=== PATIENT | female | born 1995 | race African-American/Black ===

== ENCOUNTER 2016-06-06 12:30 | Emergency (ER) | payer OTHER ==
--- NOTE | 2016-06-06 14:47 | EDDOCDS ---
Nurse's Notes [facility] Name: Lacey Mohan Age: 21 yrs Sex: Female : 1995 Arrival Date: 06/06/2016 Time: 12:30 Bed Triage 1 Private MD: Vani SMALL Diagnosis: Low back pain;Constipation Presentation: 06/06 12:40 Presenting complaint: Patient states: extreme back and abdominal pain that started dsf yesterday. Acute neurological deficits are not present. Mechanism of Injury: No Mechanism of Injury. Adult Sepsis Screening: The patient does not have new or worsening altered mentation. Patient's respiratory rate is less than 22. Systolic blood pressure is greater than 100. Patient has a qSOFA score of 0- Negative Sepsis Screen. Suicide/Homicide risk assessment- the patient denies having any suicidal and/or homicidal ideations and does not present with any other emotional, behavioral or mental health complaints. 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 Transition of care: patient was not received from another setting of care. 12:40 Acuity: DAT Level 4 dsf 12:40 Method Of Arrival: Wheelchair dsf Triage Assessment: 12:41 General: Appears in no apparent distress, Behavior is appropriate for age, cooperative. dsf Pain: Location: back and abdomen Pain currently is 10 out of 10 on a pain scale. HIV screening NA for this visit active duty . Neurological: Level of Consciousness is awake, alert. GI: Reports Pain is 10 out of 10 on a pain scale. Musculoskeletal: Reports pain in back. 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 albuterol sulfate 90 mcg/actuation Inhl HFAA as needed (Last dose: Unknown) 2. Flexeril 10 mg Oral tab 1 tab 3 times per day (Last dose: Unknown) - PMHx: Asthma; - PSHx: none; - Social history: Smoking status: Patient uses tobacco products, current every day smoker. No barriers to communication noted, The patient speaks fluent Wolof, Speaks appropriately for age. - Family history: Not pertinent. - : The pt / caregiver states he / she is not on anticoagulants. Home medication list is obtained from the patient. - Exposure Risk Screening:: None identified. Screenin:45 Screening information is obtained from the patient. Fall risk: No risks identified. kr3 Assistance ADL's: requires no assistance with activities of daily living. Abuse/DV Screen: The patient / caregiver reports he/she is: not in a situation that causes fear, pain or injury. Nutritional screening: No deficits noted. Advance Directives: Currently, there is no health care proxy. home support is adequate. Assessment: 14:45 Reassessment: Patient appears in no apparent distress at this time. Pain: Location: kr3 back. Respiratory: Respiratory effort is even, unlabored. Derm: Skin is normal. Musculoskeletal: Range of motion intact in all extremities. Vital Signs: 12:32 BP 106 / 64; Pulse 98; Resp 18; Temp 98.6(T); Pulse Ox 99% on R/A; Weight 49.9 kg; dem1 Height 5 ft. 1 in. (154.94 cm); Pain 10/10; 14:02 BP 105 / 65; Pulse 79; Resp 18; Temp 98.2; Pulse Ox 96% on R/A; Pain 10/10; rn1 12:32 Body Mass Index 20.78 (49.90 kg, 154.94 cm) [facility] Vitals: 12:32 Log In Time: June 06, 2016 at 12:29. [facility] ED Course: 12:31 Patient visited by Jd Mcleod. dem1 12:31 Patient moved to Waiting dem1 12:[address] [facility] is Private Physician. dem1 12:33 Patient moved to Pre RCE dem1 12:40 Triage Initiated dsf 13:53 Patient moved to Triage 1 dsf 14:13 Lukasz Muniz PA is PHCP. btw 14:13 Rachna Berrios MD is Attending Physician. btw 14:13 Patient visited by Lukasz Muniz PA. btw 14:[address] [facility] is Referral Physician. btw 14:45 No IV's were initiated during this patient's visit. No procedures done that require kr3 assistance. 14:46 The patient / caregiver is instructed regarding the plan of care and ED course. Patient kr3 has correct armband on for positive identification. Order Results: There are currently no results for this order. Outcome: 14:27 Discharge ordered by Provider. btw 14:45 Discharge Assessment: patient administered narcotics - no. The following High Risk kr3 Discharge criteria are identified: None. Discharged to home ambulatory. Condition: stable. Discharge instructions given to patient, Instructed on discharge instructions, follow up and referral plans. medication usage, Demonstrated understanding of instructions, medications, Pt was receptive of discharge instructions/ teaching. Other had some concern that pain medication was not ordered Prescriptions given X 2. No special radiology studies were completed. Property sent home with patient. 14:46 Patient left the ED. kr3 Signatures: Amy Lyn,RN RN kr3 Lukasz Muniz PA PA btw Jerri Gay RN RN Jd Bernal1 Abhishek Ny rn1 MTDEarlene
--- NOTE | 2016-06-06 14:47 | EDDOCDS ---
Physician Documentation [facility] Name: Lacey Mohan Age: 21 yrs Sex: Female : 1995 Arrival Date: 06/06/2016 Time: 12:30 Bed Triage 1 Private MD: [facility] [place] Disposition: 06/06/16 14:27 Discharged to Home/Self Care. Impression: Low back pain, Constipation. - Condition is Stable. - Discharge Instructions: Chronic Back Pain, Irritable Bowel Syndrome, Adult, Back Pain, Adult, Oklu-ux-Cpos. - Prescriptions for Medrol (Andrew) 4 mg Oral Tablets, Dose Pack - take 1 Pack by ORAL route as directed - follow package instructions; 1 packet. Robaxin- 750 750 mg Oral Tablet - take 1 tablet by ORAL route every 6 hours As needed; 40 tablet. - Medication Reconciliation, Local Pharmacy Hours form. - Follow up: [facility]; When: 1 - 2 days; Reason: Further diagnostic work-up, Recheck today's complaints, Continuance of care. - Problem is an ongoing problem. - Symptoms are unchanged. Historical: - Allergies: Toradol (Anaphylaxis); Excedrin Migraine (Anaphylaxis); - Home Meds: 1. albuterol sulfate 90 mcg/actuation Inhl HFAA as needed (Last dose: Unknown) 2. Flexeril 10 mg Oral tab 1 tab 3 times per day (Last dose: Unknown) - PMHx: Asthma; - PSHx: none; - Social history: Smoking status: Patient uses tobacco products, current every day smoker. No barriers to communication noted, The patient speaks fluent Serbian, Speaks appropriately for age. - Family history: Not pertinent. - : The pt / caregiver states he / she is not on anticoagulants. Home medication list is obtained from the patient. - Exposure Risk Screening:: None identified. 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 1 in. (154.94 cm); Pain 10/10; 14:02 BP 105 / 65; Pulse 79; Resp 18; Temp 98.2; Pulse Ox 96% on R/A; Pain 03/11; rn1 12:32 Body Mass Index 20.78 (49.90 kg, 154.94 cm) dem1 Signatures: Amy Lyn,RN RN kr3 Lukasz Muniz PA PA btw Fuller, DesireeRN RN dsf MTDD
--- NOTE | 2016-06-08 15:48 | EDDOCDS ---
Physician Documentation [facility] Name: Lacey Mohan Age: 21 yrs Sex: Female : 1995 Arrival Date: 06/06/2016 Time: 12:30 Bed Triage 1 Private MD: [facility] [place] Disposition: 06/06/16 14:27 Discharged to Home/Self Care. Impression: Low back pain, Constipation. - Condition is Stable. - Discharge Instructions: Chronic Back Pain, Irritable Bowel Syndrome, Adult, Back Pain, Adult, Tlye-fe-Mjsu. - Prescriptions for Medrol (Andrew) 4 mg Oral Tablets, Dose Pack - take 1 Pack by ORAL route as directed - follow package instructions; 1 packet. Robaxin- 750 750 mg Oral Tablet - take 1 tablet by ORAL route every 6 hours As needed; 40 tablet. - Medication Reconciliation, Local Pharmacy Hours form. - Follow up: [facility]; When: 1 - 2 days; Reason: Further diagnostic work-up, Recheck today's complaints, Continuance of care. - Problem is an ongoing problem. - Symptoms are unchanged. Historical: - Allergies: Toradol (Anaphylaxis); Excedrin Migraine (Anaphylaxis); - Home Meds: 1. albuterol sulfate 90 mcg/actuation Inhl HFAA as needed (Last dose: Unknown) 2. Flexeril 10 mg Oral tab 1 tab 3 times per day (Last dose: Unknown) - PMHx: Asthma; - PSHx: none; - Social history: Smoking status: Patient uses tobacco products, current every day smoker. No barriers to communication noted, The patient speaks fluent Kazakh, Speaks appropriately for age. - Family history: Not pertinent. - : The pt / caregiver states he / she is not on anticoagulants. Home medication list is obtained from the patient. - Exposure Risk Screening:: None identified. 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 1 in. (154.94 cm); Pain 10/10; 14:02 BP 105 / 65; Pulse 79; Resp 18; Temp 98.2; Pulse Ox 96% on R/A; Pain 03/11; rn1 12:32 Body Mass Index 20.78 (49.90 kg, 154.94 cm) dem1 MDM: 06/07 06:56 T-Sheet-- Draft Copy was scanned into [employer] and attached to record. gb Signatures: Idania Ivey, Reg Reg gb Amy LynRN RN kr3 Lukasz Muniz PA PA btw Jerri GayRN RN dsf The chart was reviewed and I authenticate all verbal orders and agree with the evaluation and treatment provided.Attachments: 06:56 T-Sheet-- Draft Copy gb Chart Complete MTDD
--- NOTE | 2016-06-08 15:48 | EDDOCDS ---
Physician Documentation [facility] Name: Lacey Mohan Age: 21 yrs Sex: Female : 1995 Arrival Date: 06/06/2016 Time: 12:30 Bed Triage 1 Private MD: [facility] [place] Disposition: 06/06/16 14:27 Discharged to Home/Self Care. Impression: Low back pain, Constipation. - Condition is Stable. - Discharge Instructions: Chronic Back Pain, Irritable Bowel Syndrome, Adult, Back Pain, Adult, Lrus-bi-Mphz. - Prescriptions for Medrol (Andrew) 4 mg Oral Tablets, Dose Pack - take 1 Pack by ORAL route as directed - follow package instructions; 1 packet. Robaxin- 750 750 mg Oral Tablet - take 1 tablet by ORAL route every 6 hours As needed; 40 tablet. - Medication Reconciliation, Local Pharmacy Hours form. - Follow up: [facility]; When: 1 - 2 days; Reason: Further diagnostic work-up, Recheck today's complaints, Continuance of care. - Problem is an ongoing problem. - Symptoms are unchanged. Historical: - Allergies: Toradol (Anaphylaxis); Excedrin Migraine (Anaphylaxis); - Home Meds: 1. albuterol sulfate 90 mcg/actuation Inhl HFAA as needed (Last dose: Unknown) 2. Flexeril 10 mg Oral tab 1 tab 3 times per day (Last dose: Unknown) - PMHx: Asthma; - PSHx: none; - Social history: Smoking status: Patient uses tobacco products, current every day smoker. No barriers to communication noted, The patient speaks fluent Yemeni, Speaks appropriately for age. - Family history: Not pertinent. - : The pt / caregiver states he / she is not on anticoagulants. Home medication list is obtained from the patient. - Exposure Risk Screening:: None identified. 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 1 in. (154.94 cm); Pain 10/10; 14:02 BP 105 / 65; Pulse 79; Resp 18; Temp 98.2; Pulse Ox 96% on R/A; Pain 03/11; rn1 12:32 Body Mass Index 20.78 (49.90 kg, 154.94 cm) dem1 MDM: 06/07 06:56 T-Sheet-- Draft Copy was scanned into [employer] and attached to record. gb Signatures: Idania Ivey, Reg Reg gb Amy LynRN RN kr3 Lukasz Muniz PA PA btw Jerri GayRN RN dsf The chart was reviewed and I authenticate all verbal orders and agree with the evaluation and treatment provided.Attachments: 06:56 T-Sheet-- Draft Copy gb Chart Complete MTDD
--- NOTE | 2016-06-08 15:48 | EDDOCDS ---
Nurse's Notes [facility] Name: Lacey Mohan Age: 21 yrs Sex: Female : 1995 Arrival Date: 06/06/2016 Time: 12:30 Bed Triage 1 Private MD: Vani SMALL Diagnosis: Low back pain;Constipation Presentation: 06/06 12:40 Presenting complaint: Patient states: extreme back and abdominal pain that started dsf yesterday. Acute neurological deficits are not present. Mechanism of Injury: No Mechanism of Injury. Adult Sepsis Screening: The patient does not have new or worsening altered mentation. Patient's respiratory rate is less than 22. Systolic blood pressure is greater than 100. Patient has a qSOFA score of 0- Negative Sepsis Screen. Suicide/Homicide risk assessment- the patient denies having any suicidal and/or homicidal ideations and does not present with any other emotional, behavioral or mental health complaints. 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 Transition of care: patient was not received from another setting of care. 12:40 Acuity: DAT Level 4 dsf 12:40 Method Of Arrival: Wheelchair dsf Triage Assessment: 12:41 General: Appears in no apparent distress, Behavior is appropriate for age, cooperative. dsf Pain: Location: back and abdomen Pain currently is 10 out of 10 on a pain scale. HIV screening NA for this visit active duty . Neurological: Level of Consciousness is awake, alert. GI: Reports Pain is 10 out of 10 on a pain scale. Musculoskeletal: Reports pain in back. 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 albuterol sulfate 90 mcg/actuation Inhl HFAA as needed (Last dose: Unknown) 2. Flexeril 10 mg Oral tab 1 tab 3 times per day (Last dose: Unknown) - PMHx: Asthma; - PSHx: none; - Social history: Smoking status: Patient uses tobacco products, current every day smoker. No barriers to communication noted, The patient speaks fluent Kinyarwanda, Speaks appropriately for age. - Family history: Not pertinent. - : The pt / caregiver states he / she is not on anticoagulants. Home medication list is obtained from the patient. - Exposure Risk Screening:: None identified. Screenin:45 Screening information is obtained from the patient. Fall risk: No risks identified. kr3 Assistance ADL's: requires no assistance with activities of daily living. Abuse/DV Screen: The patient / caregiver reports he/she is: not in a situation that causes fear, pain or injury. Nutritional screening: No deficits noted. Advance Directives: Currently, there is no health care proxy. home support is adequate. Assessment: 14:45 Reassessment: Patient appears in no apparent distress at this time. Pain: Location: kr3 back. Respiratory: Respiratory effort is even, unlabored. Derm: Skin is normal. Musculoskeletal: Range of motion intact in all extremities. Vital Signs: 12:32 BP 106 / 64; Pulse 98; Resp 18; Temp 98.6(T); Pulse Ox 99% on R/A; Weight 49.9 kg; dem1 Height 5 ft. 1 in. (154.94 cm); Pain 10/10; 14:02 BP 105 / 65; Pulse 79; Resp 18; Temp 98.2; Pulse Ox 96% on R/A; Pain 10/10; rn1 12:32 Body Mass Index 20.78 (49.90 kg, 154.94 cm) [facility] Vitals: 12:32 Log In Time: June 06, 2016 at 12:29. [facility] ED Course: 12:31 Patient visited by Jd Mcleod. dem1 12:31 Patient moved to Waiting dem1 12:32 [facility] is Private Physician. dem1 12:33 Patient moved to Pre RCE dem1 12:40 Triage Initiated dsf 13:53 Patient moved to Triage 1 dsf 14:13 Lukasz Muniz PA is PHCP. btw 14:13 Rachna Berrios MD is Attending Physician. btw 14:13 Patient visited by Lukasz Muniz PA. btw 14:26 [facility] is Referral Physician. btw 14:45 No IV's were initiated during this patient's visit. No procedures done that require kr3 assistance. 14:46 The patient / caregiver is instructed regarding the plan of care and ED course. Patient robbie has correct armband on for positive identification. 06/07 06:56 T-Sheet-- Draft Copy was scanned into [employer] and attached to record. gb Order Results: There are currently no results for this order. Outcome: 06/06 14:27 Discharge ordered by Provider. bt 14:45 Discharge Assessment: patient administered narcotics - no. The following High Risk kr3 Discharge criteria are identified: None. Discharged to home ambulatory. Condition: stable. Discharge instructions given to patient, Instructed on discharge instructions, follow up and referral plans. medication usage, Demonstrated understanding of instructions, medications, Pt was receptive of discharge instructions/ teaching. Other had some concern that pain medication was not ordered Prescriptions given X 2. No special radiology studies were completed. Property sent home with patient. 14:46 Patient left the ED. kr3 Signatures: Idania Ivey, Reg Reg Amy Knox,RN RN kr3 Lukasz Muniz PA PA btw Jerri Gay,RN RN Jd Bernal1 Abhishek Ny rn1 Chart Complete MELA
== END 2016-06-06 14:46 | disposition home or self-care (01) ==
LOC: M ED 12:30
DX: K58.1 Irritable bowel syndrome with constipation (principal); G89.29 Other chronic pain; M54.5 Low back pain; J45.909 Unspecified asthma, uncomplicated; Z72.0 Tobacco use; Z79.899 Other long term (current) drug therapy; Z88.5 Allergy status to narcotic agent; Z88.8 Allergy status to other drugs, medicaments and biological substances

== ENCOUNTER → 2016-06-19 | Outpatient (CLI) | payer OTHER ==
[~2016-06-19] VITALS: Ht 154.9 cm; Wt 49.9 kg
[~2016-06-19] MED LIST: LIDOCAINE 2% INJ 100 MG/5 ML SDV (FOR ANES.) As Ordered ONE; ONDANSETRON 4MG/2ML VIAL (J2405) As Ordered ONE; PROPOFOL 500 MG/50 ML VIAL As Ordered ONE; ROBA500T PO; [UNRECOGNIZED DRUG - REMARK] PO; rescue inhaler INH; steroid inhaler INH
[2016-06-19] MEDS: NS 1,000 ML IV SCH (10:54)
--- NOTE | 2016-06-19 11:42 | ROOR ---
Patient Name: Lacey Mohan Procedure Date: 06/19/2016 11:24 AM Date of : 1995 Age: 21 Room: [facility] Gender: Female Note Status: Finalized Procedure: Upper GI endoscopy Indications: Lower abdominal pain, Nausea with vomiting Providers: Dustin Fox MD Referring MD: ELADIA NELSON MD Requesting Provider: Medicines: Monitored Anesthesia Care Complications: No immediate complications. Procedure: Pre-Anesthesia Assessment: - The heart rate, respiratory rate, oxygen saturations, blood pressure, adequacy of pulmonary ventilation, and response to care were monitored throughout the procedure. The Endoscope was introduced through the mouth, and advanced to the second part of duodenum. The upper GI endoscopy was accomplished without difficulty. The patient tolerated the procedure well. Findings: The Z-line was regular and was found 35 cm from the incisors. A small hiatus hernia was present. No other significant abnormalities were identified in a careful examination of the stomach. The exam of the duodenum was otherwise normal. Impression: - Z-line regular, 35 cm from the incisors. - Small hiatus hernia. - No specimens collected. - The examination was otherwise normal. Recommendation: - Patient has a contact number available for emergencies. The signs and symptoms of potential delayed complications were discussed with the patient. Return to normal activities tomorrow. Written discharge instructions were provided to the patient. - High fiber diet. - Discharge patient to home. - Continue present medications. - Follow an antireflux regimen. - Return to referring physician. - The findings and recommendations were discussed with the patient's family. Dustin Fox MD Dustin Fox MD 06/19/2016 11:41:30 AM This report has been signed electronically. Number of Addenda: 0 Note Initiated On: 06/19/2016 11:24 AM Estimated Blood Loss: Estimated blood loss: none.
--- NOTE | 2016-06-19 11:55 | ROOR ---
Patient Name: Lacey Mohan Procedure Date: 06/19/2016 11:25 AM Date of : 1995 Age: 21 Room: OP02 Gender: Female Note Status: Finalized Procedure: Colonoscopy to Cecum Indications: Lower abdominal pain, Clinically significant diarrhea of unexplained origin, Constipation Providers: Dustin Fox MD Referring MD: ELADIA NELSON MD Requesting Provider: Medicines: Monitored Anesthesia Care Complications: No immediate complications. Procedure: Pre-Anesthesia Assessment: - The heart rate, respiratory rate, oxygen saturations, blood pressure, adequacy of pulmonary ventilation, and response to care were monitored throughout the procedure. The Colonoscope was introduced through the anus and advanced to the cecum, identified by appendiceal orifice and ileocecal valve. The colonoscopy was performed without difficulty. The patient tolerated the procedure well. The quality of the bowel preparation was excellent. Findings: The perianal and digital rectal examinations were normal. Non-bleeding internal hemorrhoids were found during retroflexion. The hemorrhoids were small and Grade I (internal hemorrhoids that do not prolapse). No other significant abnormalities were identified in a careful examination of the remainder of the colon. The exam was otherwise without abnormality on direct and retroflexion views. The exam was otherwise without abnormality. Impression: - Non-bleeding internal hemorrhoids. - The examination was otherwise normal on direct and retroflexion views. - The examination was otherwise normal. - No specimens collected. - The exam was otherwise normal to the cecum. Recommendation: - Patient has a contact number available for emergencies. The signs and symptoms of potential delayed complications were discussed with the patient. Return to normal activities tomorrow. Written discharge instructions were provided to the patient. - High fiber diet. - Discharge patient to home. - Continue present medications. - Repeat colonoscopy at age 50 for screening purposes. - Return to referring physician. - The findings and recommendations were discussed with the patient's family. Dustin Fox MD Dustin Fox MD 06/19/2016 11:55:05 AM This report has been signed electronically. Number of Addenda: 0 Note Initiated On: 06/19/2016 11:25 AM Estimated Blood Loss: Estimated blood loss: none.
[2016-06-19 12:52] VITALS: BP 115/65
== END ==
LOC: M OPP 10:11
PROVIDERS: ATTEND Internal Medicine Gastroenterology
DX: R10.30 Lower abdominal pain, unspecified (principal); R19.7 Diarrhea, unspecified; K59.00 Constipation, unspecified; K64.0 First degree hemorrhoids; R11.2 Nausea with vomiting, unspecified; K44.9 Diaphragmatic hernia without obstruction or gangrene; Z79.899 Other long term (current) drug therapy; Z88.5 Allergy status to narcotic agent; Z88.6 Allergy status to analgesic agent
CPT/HCPCS: 43235; 45378; J2405

== ENCOUNTER 2016-07-09 07:16 | Emergency (ER) | payer OTHER ==
[~2016-07-09 07:16] MED LIST changes: -LIDOCAINE 2% INJ 100 MG/5 ML SDV (FOR ANES.) As Ordered ONE; -ONDANSETRON 4MG/2ML VIAL (J2405) As Ordered ONE; -PROPOFOL 500 MG/50 ML VIAL As Ordered ONE
[2016-07-09] MEDS ORDERED: FLUORESCEIN OPHTH 1 MG STRIP As Ordered ONE (07:53)
--- NOTE | 2016-07-09 08:17 | EDDOCDS ---
Physician Documentation [facility] Name: Lacey Mohan Age: 21 yrs Sex: Female : 1995 Arrival Date: 07/09/2016 Time: 07:16 Bed I10 / 23 Private MD: Disposition: 07/09/16 08:09 Discharged to Home/Self Care. Impression: Low vision, both eyes - unspecified. - Condition is Stable. - Discharge Instructions: Eye - Blurred Vision. - Medication Reconciliation, Local Pharmacy Hours form. - Follow up: [facility]; When: As needed; Reason: Further diagnostic work-up, Recheck today's complaints. Follow up: [facility]; When: Today; Reason: Recheck today's complaints. - Problem is new. - Symptoms are unchanged. - Notes: please bring paperwork back to post. recommend follow up with optometry for dilated eye exam. if needed contact Dr. Cook's office for follow up appointment. return to ER if you develop vision deficits or eye pain. your symptoms may be related to your new medication, discuss this with your prescribing physician Historical: - Allergies: Excedrin Migraine (Anaphylaxis); Toradol (Anaphylaxis); - Home Meds: 1. albuterol sulfate 90 mcg/actuation Inhl HFAA as needed 2. trazodone 50 mg Oral tab 1 tab nightly (Last dose: 07/08/2016 22:00) 3. Celexa 20 mg Oral tab 1 tab once daily (Last dose: 07/08/2016 07:00) 4. fluticasone 44 mcg/actuation inhalation HFAA 2 puffs 2 times per day as needed 5. methocarbamol 500 mg Oral tab 2 tabs every 8 hours as needed - PMHx: Asthma; Anxiety; - PSHx: none; - Social history: No barriers to communication noted, The patient speaks fluent Greenlandic, Speaks appropriately for age, Smoking status: Patient uses tobacco products, light tobacco smoker. - Family history: Not pertinent. - : The pt / caregiver states he / she is not on anticoagulants. Home medication list is obtained from the patient. - Exposure Risk Screening:: None identified. 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 1 in. (154.94 cm); Pain 0/10; 07:30 Body Mass Index 21.16 (50.80 kg, 154.94 cm) hs1 Visual Acuity: 07:32 Left Eye Visual acuity 20/40, Pupil size 4 mm, Normal, React To Light, Reactive To hs1 Accomodation; Right Eye Visual acuity 20/30, Pupil size 4 mm, Normal, React To Light, Reactive To Accomodation; Both Eyes Visual acuity 20/25; Without Lenses; MDM: 07:53 Fluorescein Strip 1 strips Ophthalmic in left eye once ordered. ar2 07:53 Fluorescein Strip 1 strips Ophthalmic in right eye once ordered. ar2 Administered Medications: 07:54 Drug: Fluorescein 1 strips [fluorescein 1 mg eye strips (1 strips)] {Note: administered mcp by A PA. Danii} Route: Ophthalmic; Site: left eye; 07:54 Drug: Fluorescein 1 strips [fluorescein 1 mg eye strips (1 strips)] {Note: administered mcp by A PA. Danii} Route: Ophthalmic; Site: right eye; Signatures: Diana Godoy RN RN mcp Robertshaw, Aaron, PA-C PABasil ar2 Leilani Choi RN RN hs1 MTDD
--- NOTE | 2016-07-09 08:17 | EDDOCDS ---
Nurse's Notes [facility] Name: Lacey Mohan Age: 21 yrs Sex: Female : 1995 Arrival Date: 07/09/2016 Time: 07:16 Bed I10 23 Private MD: Diagnosis: Low vision, both eyes-unspecified Presentation: 07/09 07:23 Presenting complaint: Patient states: when I woke up this morning after taking sleeping hs1 medication last night - I felt shaky and my vision was blurry. Patient states vision is blurry. Adult Sepsis Screening: The patient does not have new or worsening altered mentation. Patient's respiratory rate is less than 22. Systolic blood pressure is greater than 100. Patient has a qSOFA score of 0- Negative Sepsis Screen. 07:33 Suicide/Homicide risk assessment- the patient denies having any suicidal and/or hs1 homicidal ideations and does not present with any other emotional, behavioral or mental health complaints. 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 Transition of care: patient was not received from another setting of care. 07:33 Method Of Arrival: Walkin/Carried/Asstd hs1 07:33 Acuity: DAT Level 4 hs1 Triage Assessment: 07:32 General: Appears in no apparent distress, comfortable, Behavior is cooperative. Pain: hs1 Denies pain. HIV screening NA for this visit Offered previously. Neurological: Reports blurred vision. Respiratory: Airway is patent Respiratory effort is even, unlabored, Respiratory pattern is regular, symmetrical. Derm: No deficits noted. 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 albuterol sulfate 90 mcg/actuation Inhl HFAA as needed 2. trazodone 50 mg Oral tab 1 tab nightly (Last dose: 07/08/2016 22:00) 3. Celexa 20 mg Oral tab 1 tab once daily (Last dose: 07/08/2016 07:00) 4. fluticasone 44 mcg/actuation inhalation HFAA 2 puffs 2 times per day as needed 5. methocarbamol 500 mg Oral tab 2 tabs every 8 hours as needed - PMHx: Asthma; Anxiety; - PSHx: none; - Social history: No barriers to communication noted, The patient speaks fluent Moldovan, Speaks appropriately for age, Smoking status: Patient uses tobacco products, light tobacco smoker. - Family history: Not pertinent. - : The pt / caregiver states he / she is not on anticoagulants. Home medication list is obtained from the patient. - Exposure Risk Screening:: None identified. Screenin:16 Screening information is obtained from the patient. Fall risk: No risks identified. mcp Assistance ADL's: requires no assistance with activities of daily living. Abuse/DV Screen: The patient / caregiver reports he/she is: not in a situation that causes fear, pain or injury. Nutritional screening: No deficits noted. Advance Directives: There is no active DNR order. home support is adequate. Assessment: 08:15 General: Appears in no apparent distress, comfortable, Behavior is cooperative. Pain: mcp Denies pain. Neurological: Level of Consciousness is awake, alert, Oriented to person, place, time, Moves all extremities. Speech is normal, Reports blurred vision. Respiratory: Airway is patent Respiratory effort is even, unlabored. Derm: Skin is normal. Vital Signs: 07:30 BP 104 / 69; Pulse 81; Resp 18; Temp 97.8(TE); Pulse Ox 98% ; Weight 50.8 kg; Height 5 hs1 ft. 1 in. (154.94 cm); Pain 0/10; 07:30 Body Mass Index 21.16 (50.80 kg, 154.94 cm) hs1 Vitals: 07:30 Log In Time: July 09, 2016 at 07:15. hs1 Visual Acuity: 07:32 Left Eye Visual acuity 20/40, Pupil size 4 mm, Normal, React To Light, Reactive To hs1 Accomodation; Right Eye Visual acuity 20/30, Pupil size 4 mm, Normal, React To Light, Reactive To Accomodation; Both Eyes Visual acuity 20/25; Without Lenses; ED Course: 07:18 Patient visited by Inder Barreto. mm15 07:18 Patient moved to Waiting mm15 07:34 Triage Initiated hs1 07:34 Patient moved to Triage 1 hs1 07:38 Tomy Foy PA-C is PHCP. ar2 07:38 Vania Marley MD is Attending Physician. ar2 07:38 Patient moved to I10 / 23 hs1 07:46 Patient visited by Tomy Foy PA-C. ar2 08:08 Khang Cook is Referral Physician. ar2 08:08 [facility] is Referral Physician. ar2 08:16 The patient / caregiver is instructed regarding the plan of care and ED course. Patient mcp has correct armband on for positive identification. Bed in low position. Call light in reach. 08:16 No IV's were initiated during this patient's visit. No procedures done that require mcp assistance. Administered Medications: 07:54 Drug: Fluorescein 1 strips [fluorescein 1 mg eye strips (1 strips)] {Note: administered mcp by A PA. Danii} Route: Ophthalmic; Site: left eye; 07:54 Drug: Fluorescein 1 strips [fluorescein 1 mg eye strips (1 strips)] {Note: administered mcp by A PA. Danii} Route: Ophthalmic; Site: right eye; Order Results: There are currently no results for this order. Outcome: 08:09 Discharge ordered by Provider. ar2 08:16 Discharge Assessment: patient administered narcotics - no. The following High Risk [facility] Discharge criteria are identified: None. Discharged to home ambulatory. Condition: stable. Discharge instructions given to patient, Instructed on discharge instructions, follow up and referral plans. Demonstrated understanding of instructions, Pt was receptive of discharge instructions/ teaching. No special radiology studies were completed. Property sent home with patient. 08:17 Patient left the ED. [facility] Signatures: Diana Godoy RN RN [facility] Tomy Foy PA-C PA-C ar2 Leilani Choi RN RN hs1 Inder Barreto mm15 MTDD
--- NOTE | 2016-07-11 09:17 | EDDOCDS ---
Physician Documentation [facility] Name: Lacey Mohan Age: 21 yrs Sex: Female : 1995 Arrival Date: 07/09/2016 Time: 07:16 Bed I10 / 23 Private MD: Disposition: 07/09/16 08:09 Discharged to Home/Self Care. Impression: Low vision, both eyes - unspecified. - Condition is Stable. - Discharge Instructions: Eye - Blurred Vision. - Medication Reconciliation, Local Pharmacy Hours form. - Follow up: Khang Cook; When: As needed; Reason: Further diagnostic work-up, Recheck today's complaints. Follow up: Vani Santos [facility]; When: Today; Reason: Recheck today's complaints. - Problem is new. - Symptoms are unchanged. - Notes: please bring paperwork back to post. recommend follow up with optometry for dilated eye exam. if needed contact Dr. Cook's office for follow up appointment. return to ER if you develop vision deficits or eye pain. your symptoms may be related to your new medication, discuss this with your prescribing physician Historical: - Allergies: Excedrin Migraine (Anaphylaxis); Toradol (Anaphylaxis); - Home Meds: 1. albuterol sulfate 90 mcg/actuation Inhl HFAA as needed 2. trazodone 50 mg Oral tab 1 tab nightly (Last dose: 07/08/2016 22:00) 3. Celexa 20 mg Oral tab 1 tab once daily (Last dose: 07/08/2016 07:00) 4. fluticasone 44 mcg/actuation inhalation HFAA 2 puffs 2 times per day as needed 5. methocarbamol 500 mg Oral tab 2 tabs every 8 hours as needed - PMHx: Asthma; Anxiety; - PSHx: none; - Social history: No barriers to communication noted, The patient speaks fluent Bolivian, Speaks appropriately for age, Smoking status: Patient uses tobacco products, light tobacco smoker. - Family history: Not pertinent. - : The pt / caregiver states he / she is not on anticoagulants. Home medication list is obtained from the patient. - Exposure Risk Screening:: None identified. 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 1 in. (154.94 cm); Pain 0/10; 07:30 Body Mass Index 21.16 (50.80 kg, 154.94 cm) hs1 Visual Acuity: 07:32 Left Eye Visual acuity 20/40, Pupil size 4 mm, Normal, React To Light, Reactive To hs1 Accomodation; Right Eye Visual acuity 20/30, Pupil size 4 mm, Normal, React To Light, Reactive To Accomodation; Both Eyes Visual acuity 20/25; Without Lenses; MDM: 07:53 Fluorescein Strip 1 strips Ophthalmic in left eye once ordered. ar2 07:53 Fluorescein Strip 1 strips Ophthalmic in right eye once ordered. ar2 08:17 [facility] Payment Agreement was scanned into [employer] and attached to record. 5 08:17 Financial registration complete. jp5 14:50 T-Sheet-- Draft Copy was scanned into [employer] and attached to record. gb Administered Medications: 07:54 Drug: Fluorescein 1 strips [fluorescein 1 mg eye strips (1 strips)] {Note: administered mcp by A PA. Danii} Route: Ophthalmic; Site: left eye; 07:54 Drug: Fluorescein 1 strips [fluorescein 1 mg eye strips (1 strips)] {Note: administered mcp by A PA. Danii} Route: Ophthalmic; Site: right eye; Signatures: Diana Godoy RN RN [facility] Idania Ivey, Reg Reg Tomy Foy PA-C PABasil ar2 Leilani Choi RN RN [facility] Damir Blancas 5 The chart was reviewed and I authenticate all verbal orders and agree with the evaluation and treatment provided.Attachments: : [facility] Payment Agreement jp5 14:50 T-Sheet-- Draft Copy gb Chart Complete MTDD
--- NOTE | 2016-07-11 09:17 | EDDOCDS ---
Nurse's Notes [facility] Name: Lacey Mohan Age: 21 yrs Sex: Female : 1995 Arrival Date: 07/09/2016 Time: 07:16 Bed I10 23 Private MD: Diagnosis: Low vision, both eyes-unspecified Presentation: 07/09 07:23 Presenting complaint: Patient states: when I woke up this morning after taking sleeping hs1 medication last night - I felt shaky and my vision was blurry. Patient states vision is blurry. Adult Sepsis Screening: The patient does not have new or worsening altered mentation. Patient's respiratory rate is less than 22. Systolic blood pressure is greater than 100. Patient has a qSOFA score of 0- Negative Sepsis Screen. 07:33 Suicide/Homicide risk assessment- the patient denies having any suicidal and/or hs1 homicidal ideations and does not present with any other emotional, behavioral or mental health complaints. 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 Transition of care: patient was not received from another setting of care. 07:33 Method Of Arrival: Walkin/Carried/Asstd hs1 07:33 Acuity: DAT Level 4 hs1 Triage Assessment: 07:32 General: Appears in no apparent distress, comfortable, Behavior is cooperative. Pain: hs1 Denies pain. HIV screening NA for this visit Offered previously. Neurological: Reports blurred vision. Respiratory: Airway is patent Respiratory effort is even, unlabored, Respiratory pattern is regular, symmetrical. Derm: No deficits noted. 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 albuterol sulfate 90 mcg/actuation Inhl HFAA as needed 2. trazodone 50 mg Oral tab 1 tab nightly (Last dose: 07/08/2016 22:00) 3. Celexa 20 mg Oral tab 1 tab once daily (Last dose: 07/08/2016 07:00) 4. fluticasone 44 mcg/actuation inhalation HFAA 2 puffs 2 times per day as needed 5. methocarbamol 500 mg Oral tab 2 tabs every 8 hours as needed - PMHx: Asthma; Anxiety; - PSHx: none; - Social history: No barriers to communication noted, The patient speaks fluent Indonesian, Speaks appropriately for age, Smoking status: Patient uses tobacco products, light tobacco smoker. - Family history: Not pertinent. - : The pt / caregiver states he / she is not on anticoagulants. Home medication list is obtained from the patient. - Exposure Risk Screening:: None identified. Screenin:16 Screening information is obtained from the patient. Fall risk: No risks identified. mcp Assistance ADL's: requires no assistance with activities of daily living. Abuse/DV Screen: The patient / caregiver reports he/she is: not in a situation that causes fear, pain or injury. Nutritional screening: No deficits noted. Advance Directives: There is no active DNR order. home support is adequate. Assessment: 08:15 General: Appears in no apparent distress, comfortable, Behavior is cooperative. Pain: mcp Denies pain. Neurological: Level of Consciousness is awake, alert, Oriented to person, place, time, Moves all extremities. Speech is normal, Reports blurred vision. Respiratory: Airway is patent Respiratory effort is even, unlabored. Derm: Skin is normal. Vital Signs: 07:30 BP 104 / 69; Pulse 81; Resp 18; Temp 97.8(TE); Pulse Ox 98% ; Weight 50.8 kg; Height 5 hs1 ft. 1 in. (154.94 cm); Pain 0/10; 07:30 Body Mass Index 21.16 (50.80 kg, 154.94 cm) hs1 Vitals: 07:30 Log In Time: July 09, 2016 at 07:15. hs1 Visual Acuity: 07:32 Left Eye Visual acuity 20/40, Pupil size 4 mm, Normal, React To Light, Reactive To hs1 Accomodation; Right Eye Visual acuity 20/30, Pupil size 4 mm, Normal, React To Light, Reactive To Accomodation; Both Eyes Visual acuity 20/25; Without Lenses; ED Course: 07:18 Patient visited by Inder Barreto. mm15 07:18 Patient moved to Waiting mm15 07:34 Triage Initiated hs1 07:34 Patient moved to Triage 1 hs1 07:38 Tomy Foy PA-C is PHCP. ar2 07:38 Vania Marley MD is Attending Physician. ar2 07:38 Patient moved to I10 / 23 hs1 07:46 Patient visited by Tomy Foy PA-C. ar2 08:08 Khang Cook is Referral Physician. ar2 08:08 Vani Santos [facility] is Referral Physician. ar2 08:16 The patient / caregiver is instructed regarding the plan of care and ED course. Patient mcp has correct armband on for positive identification. Bed in low position. Call light in reach. 08:16 No IV's were initiated during this patient's visit. No procedures done that require mcp assistance. 08:17 [facility] Payment Agreement was scanned into [employer] and attached to record. jp5 14:50 T-Sheet-- Draft Copy was scanned into [employer] and attached to record. gb Administered Medications: 07:54 Drug: Fluorescein 1 strips [fluorescein 1 mg eye strips (1 strips)] {Note: administered mcp by A PA. Danii} Route: Ophthalmic; Site: left eye; 07:54 Drug: Fluorescein 1 strips [fluorescein 1 mg eye strips (1 strips)] {Note: administered mcp by A PA. Danii} Route: Ophthalmic; Site: right eye; Order Results: There are currently no results for this order. Outcome: 08:09 Discharge ordered by Provider. ar2 08:16 Discharge Assessment: patient administered narcotics - no. The following High Risk mcp Discharge criteria are identified: None. Discharged to home ambulatory. Condition: stable. Discharge instructions given to patient, Instructed on discharge instructions, follow up and referral plans. Demonstrated understanding of instructions, Pt was receptive of discharge instructions/ teaching. No special radiology studies were completed. Property sent home with patient. 08:17 Patient left the ED. mcp Signatures: Diana Godoy, RN RN [facility] Idania Ivey, Reg Reg Tomy Foy PA-C PA-C ar2 Leilani Choi RN RN hs1 Inder Barreto 15 Damir Blancas jp5 Chart Complete MTDD
--- NOTE | 2016-07-11 09:17 | EDDOCDS ---
Physician Documentation [facility] Name: Lacey Mohan Age: 21 yrs Sex: Female : 1995 Arrival Date: 07/09/2016 Time: 07:16 Bed I10 / 23 Private MD: Disposition: 07/09/16 08:09 Discharged to Home/Self Care. Impression: Low vision, both eyes - unspecified. - Condition is Stable. - Discharge Instructions: Eye - Blurred Vision. - Medication Reconciliation, Local Pharmacy Hours form. - Follow up: Khang Cook; When: As needed; Reason: Further diagnostic work-up, Recheck today's complaints. Follow up: Vani Santos [facility]; When: Today; Reason: Recheck today's complaints. - Problem is new. - Symptoms are unchanged. - Notes: please bring paperwork back to post. recommend follow up with optometry for dilated eye exam. if needed contact Dr. Cook's office for follow up appointment. return to ER if you develop vision deficits or eye pain. your symptoms may be related to your new medication, discuss this with your prescribing physician Historical: - Allergies: Excedrin Migraine (Anaphylaxis); Toradol (Anaphylaxis); - Home Meds: 1. albuterol sulfate 90 mcg/actuation Inhl HFAA as needed 2. trazodone 50 mg Oral tab 1 tab nightly (Last dose: 07/08/2016 22:00) 3. Celexa 20 mg Oral tab 1 tab once daily (Last dose: 07/08/2016 07:00) 4. fluticasone 44 mcg/actuation inhalation HFAA 2 puffs 2 times per day as needed 5. methocarbamol 500 mg Oral tab 2 tabs every 8 hours as needed - PMHx: Asthma; Anxiety; - PSHx: none; - Social history: No barriers to communication noted, The patient speaks fluent [place] Island[place], Speaks appropriately for age, Smoking status: Patient uses tobacco products, light tobacco smoker. - Family history: Not pertinent. - : The pt / caregiver states he / she is not on anticoagulants. Home medication list is obtained from the patient. - Exposure Risk Screening:: None identified. 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 1 in. (154.94 cm); Pain 0/10; 07:30 Body Mass Index 21.16 (50.80 kg, 154.94 cm) hs1 Visual Acuity: 07:32 Left Eye Visual acuity 20/40, Pupil size 4 mm, Normal, React To Light, Reactive To hs1 Accomodation; Right Eye Visual acuity 20/30, Pupil size 4 mm, Normal, React To Light, Reactive To Accomodation; Both Eyes Visual acuity 20/25; Without Lenses; MDM: 07:53 Fluorescein Strip 1 strips Ophthalmic in left eye once ordered. ar2 07:53 Fluorescein Strip 1 strips Ophthalmic in right eye once ordered. ar2 08:17 [facility] Payment Agreement was scanned into [employer] and attached to record. 5 08:17 Financial registration complete. jp5 14:50 T-Sheet-- Draft Copy was scanned into [employer] and attached to record. gb Administered Medications: 07:54 Drug: Fluorescein 1 strips [fluorescein 1 mg eye strips (1 strips)] {Note: administered mcp by A PA. Danii} Route: Ophthalmic; Site: left eye; 07:54 Drug: Fluorescein 1 strips [fluorescein 1 mg eye strips (1 strips)] {Note: administered mcp by A PA. Danii} Route: Ophthalmic; Site: right eye; Signatures: Diana Godoy RN RN [facility] Idania Ivey, Reg Reg Tomy Foy PA-C PABasil ar2 Leilnai Choi RN RN [facility] Damir Blancas 5 The chart was reviewed and I authenticate all verbal orders and agree with the evaluation and treatment provided.Attachments: : [facility] Payment Agreement jp5 14:50 T-Sheet-- Draft Copy gb Chart Complete MTDD
== END 2016-07-09 08:17 | disposition home or self-care (01) ==
LOC: M ED 07:16
DX: H53.9 Unspecified visual disturbance (principal); J45.909 Unspecified asthma, uncomplicated; F41.9 Anxiety disorder, unspecified; F17.210 Nicotine dependence, cigarettes, uncomplicated; Z79.899 Other long term (current) drug therapy; Z88.6 Allergy status to analgesic agent; Z88.8 Allergy status to other drugs, medicaments and biological substances

== ENCOUNTER 2016-07-12 12:22 | Inpatient (IN) | payer OTHER ==
[~2016-07-12] VITALS: Ht 154.9 cm; Wt 49.0 kg
[2016-07-12 13:07] LABS: MEAN CORPUSCULAR HEMOGLOBIN 32.1 pg (27.0-33.0); MEAN CORPUSCULAR HGB CONC 34.4 g/dl (32.0-36.5); MEAN CORPUSCULAR VOLUME 93.3 fl (80.0-96.0); RED CELL DISTRIBUTION WIDTH 11.8 % (11.5-14.5); WHITE BLOOD COUNT 3.9 K/mm3 (4.0-10.0)
[2016-07-12 13:19] LABS: ALBUMIN 4.3 GM/DL (3.2-5.2); ALBUMIN/GLOBULIN RATIO 1.05 (1.00-1.93); ALKALINE PHOSPHATASE 63 U/L (45-117); ALT/SGPT 25 U/L (12-78); ANION GAP 11 MEQ/L (8-16); AST/SGOT 24 U/L (15-37); BILIRUBIN,DIRECT 0.2 MG/DL (0.0-0.2); BILIRUBIN,TOTAL 1.1 MG/DL (0.2-1.0); BLOOD UREA NITROGEN 10 MG/DL (7-18); CALCIUM LEVEL 8.9 MG/DL (8.5-10.1); CARBON DIOXIDE LEVEL 22 MEQ/L (21-32); CHLORIDE LEVEL 106 MEQ/L (98-107); CREATININE FOR GFR 0.99 MG/DL (0.55-1.02); GLOMERULAR FILTRATION RATE > 60.0 (>60); GLUCOSE, FASTING 74 MG/DL (70-105); POTASSIUM SERUM 3.3 MEQ/L (3.5-5.1); SODIUM LEVEL 139 MEQ/L (136-145); TOTAL PROTEIN 8.4 GM/DL (6.4-8.2)
[2016-07-12 13:41] LABS: AMPHETAMINES LEVEL URINE NEGATIVE (NEGATIVE); BENZODIAZEPINES URINE NEGATIVE (NEGATIVE); COCAINE METABOLITE URINE NEGATIVE (NEGATIVE); CONTROL LINE INT CTR LINE PRESENT; METHADONE URINE NEGATIVE (NEGATIVE); OPIATES URINE NEGATIVE (NEGATIVE); TRICYCLIC ANTIDEPRESS URINE NEGATIVE (NEGATIVE)
[2016-07-12] MEDS ORDERED: PROMETHAZINE INJ 25 MG/ML VIAL (J2550) As Ordered ONE (13:55)
[2016-07-12 18:10] LABS: CONTROL LINE UCG INT CTR LINE PRESENT
[2016-07-12] MEDS ORDERED: CELE20TA PO (21:11)
[2016-07-12] MEDS ORDERED: TRAZ50TA4 PO (21:11)
[2016-07-12] MEDS ORDERED: PROA1AER INH (21:11)
[2016-07-12] MEDS ORDERED: ADVA115A INH (21:11)
--- NOTE | 2016-07-12 21:28 | EDDOCDS ---
Physician Documentation [facility] Name: Lacey Mohan Age: 21 yrs Sex: Female : 1995 Arrival Date: 07/12/2016 Time: 12:22 Bed [facility] Private MD: Disposition: 07/12/16 20:29 Hospitalization ordered by Fely Bhat for Inpatient Admission. Preliminary diagnosis is Suicide attempt. - Bed requested for Admit. - Status is Inpatient Admission. slm - Condition is Stable. - Problem is an acute exacerbation. - Symptoms have improved. Historical: - Allergies: Excedrin Migraine (Anaphylaxis); Toradol (Anaphylaxis); - Home Meds: 1. Celexa 20 mg Oral tab 1 tab once daily (Last dose: 07/09/2016) 2. albuterol sulfate 90 mcg/actuation Inhl HFAA as needed 3. methocarbamol 500 mg Oral tab 2 tabs every 8 hours as needed (Last dose: Unknown) 4. trazodone 50 mg Oral tab 1 tab nightly - PMHx: Anxiety; Asthma; - PSHx: none; - Social history: Smoking status: Patient uses tobacco products, current every day smoker. No barriers to communication noted, The patient speaks fluent [place]ut[place], Speaks appropriately for age. - Family history: Not pertinent. - : The pt / caregiver states he / she is not on anticoagulants. Home medication list is obtained from the patient, [employer] import data. - Exposure Risk Screening:: None identified. 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 N/A - Irregular menses kr3 Vital Signs: 12:24 BP 128 / 83; Pulse 72; Resp 20; Temp 97.8(TE); Pulse Ox 94% ; Weight 49.9 kg / 110.01 ja5 lbs; Pain 0/10; 13:08 BP 120 / 82 (auto/); ja5 13:10 Pulse 66 MON; Pulse Ox 100% ; ja5 13:15 BP 119 / 74 (auto/); ja5 13:15 Pulse 61 MON; Pulse Ox 100% ; ja5 13:30 BP 120 / 71 (auto/); ja5 13:30 Pulse 65 MON; Pulse Ox 99% ; ja5 13:45 BP 120 / 68 (auto/); ja5 13:45 Pulse 68 MON; Pulse Ox 97% ; ja5 14:00 BP 113 / 69 (auto/); ja5 14:00 Pulse 61 MON; Pulse Ox 99% ; ja5 14:15 BP 114 / 70 (auto/); ja5 14:15 Pulse 68 MON; Pulse Ox 100% ; ja5 14:30 BP 113 / 68 (auto/); ja5 14:31 Pulse 64 MON; Pulse Ox 100% ; ja5 14:45 BP 110 / 66 (auto/); ja5 14:45 Pulse 61 MON; Pulse Ox 100% ; ja5 15:00 BP 106 / 67 (auto/); ja5 15:00 Pulse 62 MON; Pulse Ox 96% ; ja5 15:30 BP 104 / 69 (auto/); ja5 15:30 Pulse 63 MON; Pulse Ox 98% ; ja5 15:45 BP 97 / 55 (auto/); ja5 15:45 Pulse 60 MON; Pulse Ox 97% ; ja5 17:04 BP 109 / 62; Pulse 64; Resp 16; Temp 97(O); Pulse Ox 98% ; Pain 0/10; ja5 17:45 BP 117 / 61 (auto/); kr3 17:46 Pulse 92 MON; Pulse Ox 98% on R/A; kr3 18:00 BP 113 / 65 (auto/); kr3 18:01 Pulse 84 MON; Pulse Ox 98% on R/A; kr3 21:24 BP 106 / 57; Pulse 83; Resp 16; Temp 96.5; Pulse Ox 95% on R/A; Pain 0/10; slm MDM: 12:26 ECG WITH READING ER PHYS+CARDIAG ordered. EDMS 12:32 Consult PFS/PSA/Blasting Machine Operator ordered. fg 12:32 Consult PFS/PSA/Blasting Machine Operator: Patient's case requires discussion with on-call fg Psychiatrist ordered. 12:32 PSA/PFS to call Nursing Delphi Programmer, to enter patient data on [place] Safe Act if patient fg involuntarily admitted or transferred for SI or HI ordered. 12:32 Confirm accurate psychiatric medication list and times of last dosage ordered. fg 12:32 Detain Pt Until Medically/PFS Cleared ordered. fg 12:33 Acetaminophen Level Ordered. EDMS 12:33 Basic Metabolic Profile Ordered. EDMS 12:33 Complete Blood Count Ordered. EDMS 12:33 Drug Eval Toxicology ED Only Ordered. EDMS 12:33 Ethyl Alcohol (ethanol) Ordered. EDMS 12:34 Liver Profile Ordered. EDMS 12:34 Salicylate Level Ordered. EDMS 12:34 Thyroid Stimulating Hormone Ordered. EDMS 12:47 Urine Test-In Lab Ordered. EDMS 12:48 Accucheck ordered. fg 13:00 Fingerstick Blood Sugar Ordered. EDMS 13:21 Financial registration complete. lg 13:37 ID-[facility] Payment Agreement was scanned into [employer] and attached to record. lg 13:47 Promethazine 12.5 mg IVP once; dilute and administer 30-60 minutes ordered. fg 13:48 Oxygen at 2L/min via NC ordered. fg 14:03 CARDIAC INJURY PROFILE Ordered. EDMS 14:30 Salicylate Level: 1500 Ordered. EDMS 14:30 Acetaminophen Level: 1500 Ordered. EDMS 16:22 ECG WITH READING ER PHYS+CARDIAG ordered. EDMS 16:57 REGULAR+DIET ordered. EDMS 18:42 REGULAR DIET PLASTIC BLOAND+DIET ordered. EDMS 20:17 Consult PFS/PSA/Blasting Machine Operator complete. cl 20:17 Consult PFS/PSA/Blasting Machine Operator: Patient's case requires discussion with on-call cl Psychiatrist complete. 20:17 PSA/PFS to call Nursing [employer] Programmer, to enter patient data [place] Safe [place] if patient cl involuntarily admitted or transferred for SI or HI complete. 20:41 Acetaminophen Level Reviewed. mm11 20:41 Basic Metabolic Profile Reviewed. mm11 20:41 Complete Blood Count Reviewed. mm11 20:41 Liver Profile Reviewed. mm11 20:41 Salicylate Level Reviewed. mm11 20:41 Salicylate Level: 1500 Reviewed. mm11 20:41 Acetaminophen Level: 1500 Reviewed. mm11 20:41 Drug Eval Toxicology ED Only Reviewed. mm11 20:41 Ethyl Alcohol (ethanol) Reviewed. mm11 20:41 Thyroid Stimulating Hormone Reviewed. mm11 20:41 Urine Test-In Lab Reviewed. mm11 20:41 Fingerstick Blood Sugar Reviewed. mm11 20:41 CARDIAC INJURY PROFILE Reviewed. mm11 21:11 Admit to IMHU: ordered. EDMS 21:13 MHE Legal paperwork was scanned into [employer] and attached to record. cs 21:14 Admit to IMHU: ordered. EDMS Administered Medications: 14:03 Drug: Promethazine 12.5 mg [promethazine 25 mg/mL injection solution (0.5 mL)] Route: ja5 IVP; Site: right antecubital; Signatures: Dispatcher [employer] EDMS Nathaniel Lopez, PSA PSA cl Mauro Atkins, PSA PSA Randi Gustafson, Amy Zamora lg,RN RN [email or web address] Denny Sosa, DO mm11 Carolina Johns,FIELD MARKETING LEAD FIELD MARKETING LEAD Rachna Gutierrez MD MD fg Anderson, Jessica RN ja5 The chart was reviewed and I authenticate all verbal orders and agree with the evaluation and treatment provided.Corrections: (The following items were deleted from the chart) 14:03 13:49 CARDIAC INJURY PROFILE+LAB ordered. EDMS EDMS Attachments: 13:37 [facility] [place] lg MTDD
--- NOTE | 2016-07-12 21:29 | EDDOCDS ---
Nurse's Notes [facility] Name: Lacey Mohan Age: 21 yrs Sex: Female : 1995 Arrival Date: 07/12/2016 Time: 12:22 Bed [facility] Private MD: Diagnosis: Suicide attempt Presentation: 07/12 12:24 Presenting complaint: EMS states: Patient found in house by friend, last known well ja5 time 11:10 AM, found ambien and trazidone prescription bottles in room, unknown amount taken. Upon arrival to scene EMS found patient unconscious with shallow respirations at a rate of 20, stable vital signs. of patient stated that she had been expressing suicidal ideations, last text message contained suicidal content. Presenting complaint:. Adult Sepsis Screening: Patient has new or worsening altered mentation (1 point). Patient's respiratory rate is less than 22. Systolic blood pressure is greater than 100. Patient has a qSOFA score of 0- Negative Sepsis Screen. Suicide/Homicide risk assessment- The patient admits to and/or has been reported to be having suicidal ideations. Status: Transition of care: patient was not received from another setting of care. 12:24 Acuity: DAT Level 2 ja5 12:24 Method Of Arrival: Ambulance ja5 12:49 Presenting complaint: Patient states: took Ambien times 2 which she had gotten in October and handful of trazodone. patient reports took meds to . Triage Assessment: 12:32 Neurological: Level of Consciousness is obtunded, Oriented to none. Cardiovascular: ja5 Rhythm is sinus rhythm. Respiratory: Airway is patent Respiratory effort is even, unlabored. Derm: Skin is pink, warm & dry. 20:55 HIV screening NA for this visit Offered previously. [facility] LANGUAGE ASSISTANT: 12:52 LMP N/A - Irregular menses kr3 Historical: - Allergies: Excedrin Migraine (Anaphylaxis); Toradol (Anaphylaxis); - Home Meds: 1. Celexa 20 mg Oral tab 1 tab once daily (Last dose: 07/09/2016) 2. albuterol sulfate 90 mcg/actuation Inhl HFAA as needed 3. methocarbamol 500 mg Oral tab 2 tabs every 8 hours as needed (Last dose: Unknown) 4. trazodone 50 mg Oral tab 1 tab nightly - PMHx: Anxiety; Asthma; - PSHx: none; - Social history: Smoking status: Patient uses tobacco products, current every day smoker. No barriers to communication noted, The patient speaks fluent Brazilian, Speaks appropriately for age. - Family history: Not pertinent. - : The pt / caregiver states he / she is not on anticoagulants. Home medication list is obtained from the patient, [employer] import data. - Exposure Risk Screening:: None identified. Screenin:39 Screening information is obtained from the patient. Fall risk: No risks identified. ml6 Assistance ADL's: requires no assistance with activities of daily living. Abuse/DV Screen: The patient / caregiver reports he/she is: not in a situation that causes fear, pain or injury. Nutritional screening: No deficits noted. Advance Directives: Currently, there is no health care proxy. home support is adequate. Assessment: 12:33 General: Appears to be sleeping. Behavior is unconscious. Neurological: Level of [facility] Consciousness is obtunded, Oriented to none. Cardiovascular: Capillary refill < 3 seconds Heart tones S1 S2 present Rhythm is sinus rhythm No ectopy. Respiratory: Airway is patent Respiratory effort is even, unlabored, Respiratory pattern is regular, symmetrical, Breath sounds are clear bilaterally. Derm: Skin is intact, Skin is pink, warm & dry. 13:40 General: Patient is awake, lethargic and oriented x3 with complaints of pain to her [facility] head 5/10 and stomach 7/10, provider notified. She is laying on stretcher with visitors at bedside. Respirations are even and unlabored, 99%o2 sat on RA, sinus rhythm on pharmaceutical process engineer. . 14:46 General: Patient awake, alert, laying in stretcher with spouse and talking with the [facility] visitors in her room. SR on the monitor, 95% O2 sat on 2L NC with no SOB or labored breathing noted. . 16:01 General: Patient is asleep again, drowsy upon arousal, has a hard time keeping her eyes [facility] open when I talk to her. She is 96% O2sat on 2L O2 NC, respirations are even and unlabored, SR on the monitor. Visitors at bedside, side rails up, bed in low position, call decker in reach.. 17:00 General: Patient awake, alert and oriented x3 laying in stretcher with visitors at [facility] bedside. She states that she is hungry, provider notified, food tray ordered. . 18:41 General: Appears in no apparent distress, comfortable, Behavior is appropriate for age, ml6 cooperative. General: patient received from . Pain: Denies pain. Neurological: No deficits noted. Cardiovascular: No deficits noted. Capillary refill < 3 seconds is brisk in bilateral fingers toes Heart tones S1 S2 present Edema is absent. Pulses are all present. Rhythm is regular. Respiratory: No deficits noted. Airway is patent Respiratory effort is even, unlabored, Respiratory pattern is regular, symmetrical, Breath sounds are clear bilaterally. 18:41 General: Patient awake, alert, oriented x3. Respirations even and unlabored, SR on ja5 monitor. No complaints of pain. Patient has eaten all of her food on tray. Visitors at bedside. Patient transfer to [facility] via wheelchair. Gait steady during transfer. . 19:14 General: Appears in no apparent distress, comfortable, Behavior is appropriate for age, slm cooperative. General: pt eating dinner Chain of command in room security observing . Respiratory: Airway is patent Respiratory effort is even, unlabored. Derm: Skin is pink, warm & dry. 20:20 General: Appears in no apparent distress, comfortable, Behavior is appropriate for age, slm cooperative, pleasant, quiet. General: pt resting on stretcher security observing . Respiratory: Airway is patent Respiratory effort is even, unlabored. 21:18 General: Appears in no apparent distress, comfortable, Behavior is cooperative, quiet. slm General: pt resting on stretcher friend in to visit security observing . Pain: Denies pain. Neurological: Level of Consciousness is awake, alert, obeys commands. Respiratory: Airway is patent Respiratory effort is even, unlabored. Derm: Skin is pink, warm & dry. 21:23 Reassessment: Patient appears in no apparent distress at this time. [facility] Mental Health Eval: 19:45 Mental health consult is initiated at 19:46. 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 [facility] Behavioral Health: The patient is not an established patient of [facility] Behavioral Health. Referral Information: Evaluation referral is generated by [facility]. The patient was referred for evaluation because Pt was found by her /friend of 8 months after sending a suicide note to her IPAD, per Genny Mohan. Pt reports taking an OD of her new medications of 1 week, before writing a suicide note to her on pt's IPAD that the had. Pt reports feeling depressed and +suicidal 2 or 3 times a week, 3 weeks ago was +SI with a plan to sit in her garage with the door down and the car running, she went to her counselor and she CFS, then was put on medications. Pt reports without her trazodone she would not be sleeping at this time, sometimes she remembers to take her other medications. Pt reports as a 17 YO she attempted to cut her self on her left arm, no past admissions, no therapy, from [place], no family history. states she has a history, Bipolar, depression, anxiety, and her family has issues, very rich hidden behind their rich home, not a good support system. Pt is suppose to be med boarded out, but the [employer] is trying to chapter her out because of an alleged smoking of Cannabis in 2015, per pt. Pt reports she has back pain and is not able to perform her duties and wishes to be med boarded out.. Subjective: The patients chief complaint is Pt reports feeling extremely depressed, + SI with an attempt today at 11:00 ok OD unknown amt of her medications, No thoughts to kill others, +SI 2 or 3 times a week, sleeping a problem if she does not take her medications, goes days with out eating, soft spoken, poor eye contact, tearful, remorseful. Delusions are denied. Patient's mood is anxious, depressed, hopeless, Hallucinations are denied. Mental Health history: anxiety, Bipolar Disorder, depression, Mental Health Admissions: None. Current Outpatient Mental Health Services: Psychiatrist / Agency: [facility] therapist and doctor past 6 months per pt. Current living environment is The patient currently lives with his / her significant other, . 20:14 Patient presents to Emergency Department with the following symptoms within the past 2 cs weeks: agitation, anxiety, depressed mood, feelings of helplessness/hopelessness, non-compliance, poor impulse control, sleep disturbance - insomnia, suicidal ideation with attempt/gesture by pills. Substance abuse: Pt denies. Mental status exam: Patients appearance is thin, Patient's behavior is inhibited, Speech is mumbled. slow. Affect is restricted. Mood is anxious. depressed. fearful. Hallucinations are denied. Appetite is poor. Memory is fair. Energy level is tires easily. Content of thought is normal. Thought process is intact. Cognitive level is oriented to person, place, time and situation Patient's insight is absent. Judgement is poor. Rapport with interviewer is good. Suicidal Ideation present with a plan to kill self by pills. Homicidal ideation is not present. Disposition: Medically cleared for disposition by Rachna Berrios MD Psychiatric Consult is performed by phone with Dr Fely Bhat. [facility] Admission Criteria: The patient has had a suicide attempt in the recent past. Pt wrote a suicide note at 10:32 am today and attempted to OD unknown quantity at 11:00, was found [facility], pt was unresponsive. The patient requires continuous observation and/or control to protect self, others or property. The patient's care requires a multi-modal treatment plan under close supervision and coordination due to the complexity and severity of the patient's symptoms. The patient requires administration and monitoring of psychoactive medications by skilled medical providers due to the side effects of the psychoactive medications or significant dosage adjustments. Legal Status: Patient's legal status will be Emergency admission: 39. CT Safe Act: [place] Safe Act is applicable to this patient. The patient poses a risk to self or other and the Nursing Regulatory Associate has been notified. He/She will enter the patient's data. DSM-V Differential Diagnosis: Unspecified Depressive Disorder (F32.9). Insurance Pre-Certification: Not Required. Narrative: took legals and information about visiting pt on Friday. Pt states preferred pharmacy is: [facility]. Vital Signs: 12:24 BP 128 / 83; Pulse 72; Resp 20; Temp 97.8(TE); Pulse Ox 94% ; Weight 49.9 kg; Pain 0/10;ja5 13:08 BP 120 / 82 (auto/); ja5 13:10 Pulse 66 MON; Pulse Ox 100% ; ja5 13:15 BP 119 / 74 (auto/); ja5 13:15 Pulse 61 MON; Pulse Ox 100% ; ja5 13:30 BP 120 / 71 (auto/); ja5 13:30 Pulse 65 MON; Pulse Ox 99% ; ja5 13:45 BP 120 / 68 (auto/); ja5 13:45 Pulse 68 MON; Pulse Ox 97% ; ja5 14:00 BP 113 / 69 (auto/); ja5 14:00 Pulse 61 MON; Pulse Ox 99% ; ja5 14:15 BP 114 / 70 (auto/); ja5 14:15 Pulse 68 MON; Pulse Ox 100% ; ja5 14:30 BP 113 / 68 (auto/); ja5 14:31 Pulse 64 MON; Pulse Ox 100% ; ja5 14:45 BP 110 / 66 (auto/); ja5 14:45 Pulse 61 MON; Pulse Ox 100% ; ja5 15:00 BP 106 / 67 (auto/); ja5 15:00 Pulse 62 MON; Pulse Ox 96% ; ja5 15:30 BP 104 / 69 (auto/); ja5 15:30 Pulse 63 MON; Pulse Ox 98% ; ja5 15:45 BP 97 / 55 (auto/); ja5 15:45 Pulse 60 MON; Pulse Ox 97% ; ja5 17:04 BP 109 / 62; Pulse 64; Resp 16; Temp 97(O); Pulse Ox 98% ; Pain 0/10; ja5 17:45 BP 117 / 61 (auto/); kr3 17:46 Pulse 92 MON; Pulse Ox 98% on R/A; kr3 18:00 BP 113 / 65 (auto/); kr3 18:01 Pulse 84 MON; Pulse Ox 98% on R/A; kr3 21:24 BP 106 / 57; Pulse 83; Resp 16; Temp 96.5; Pulse Ox 95% on R/A; Pain 0/10; slm Vitals: 12:24 Log In Time: July 12, 2016 at 12:20. [facility] ED Course: 12:23 Patient visited by Aleida Joe, Die Repairer Stamping. lbd 12:23 Amy Lyn,RN is Primary Nurse. lbd 12:23 Tracie Hutton,RN is Primary Nurse. lbd 12:23 Patient moved to Waiting lbd 12:23 Patient moved to 2 lbd 12:30 Triage Initiated [facility] 12:30 EKG done. (by ED staff). Reviewed by Rachna Berrios MD. dem1 12:31 Rachna Berrios MD is Attending Physician. fg 12:31 Patient visited by Rachna Berrios MD. fg 12:33 Patient visited by Jd Mcleod. dem1 12:33 slasher tender helper on. Pulse ox on. NIBP on. dem1 12:38 The patient / caregiver is instructed regarding the plan of care and ED course. ml6 12:38 Inserted peripheral IV: 18gauge IV in left antecubital area and blood collected. ml6 Patient tolerated the procedure well. Labs drawn. (by ED staff). Sent per order to lab. 12:39 Acetaminophen Level Sent. kr3 12:39 Basic Metabolic Profile Sent. kr3 12:39 Complete Blood Count Sent. kr3 12:39 Drug Eval Toxicology ED Only Sent. kr3 12:39 Ethyl Alcohol (ethanol) Sent. kr3 12:39 Liver Profile Sent. kr3 12:39 Salicylate Level Sent. kr3 12:39 Thyroid Stimulating Hormone Sent. kr3 13:32 Urine Test-In Lab Sent. mb9 13:37 [facility] Payment Agreement was scanned into [employer] and attached to record. lg 13:44 Patient visited by Tracie Hutton RN. ja5 14:07 Patient visited by Tracie Hutton RN. ja5 14:08 Poison Control notified at 13:30 recommendations reviewed with to draw for ja5 acetaminophen, salicylates, ethanol, electrolytes, CK, . No specific observation time was provided. . 14:50 Patient visited by Tracie Hutton RN. ja5 15:21 Patient visited by Tracie Hutton RN. ja5 15:28 Acetaminophen Level: 1500 Sent. kr3 15:28 Salicylate Level: 1500 Sent. kr3 16:10 Patient visited by Tracie Hutton RN. ja5 16:18 Poison Control notified at 16:19 recommendations reviewed with Recommended a repeat EKG ja5 and a total of 6 hours of observation before a transition of care. 16:36 EKG done. (by ED staff). Reviewed by Rachna Berrios MD. dem1 16:37 Patient visited by Meghann De La Paz PCA. rs6 16:41 Patient visited by Jd Mcleod. dem1 17:02 Patient visited by Tracie Hutton RN. ja5 17:27 Diet tray given. kr3 18:16 Patient visited by Amy Lyn RN. kr3 18:30 Patient moved to [address] 18:36 Psych Safety Check: Location: Psych Room. Visual Assessment: Cooperative. tmm1 18:36 Accompanied by Significant Other, chain of command is present, Patient has correct tmm1 armband on for positive identification. Placed in psych safe attire. Bed in low position. Side rails up X 1. Security observing. Property removed, inventory done, secured in belongings bag- placed in locked locker. 18:38 Discontinued lock intact, bleeding controlled, pressure dressing applied, No ja5 redness/swelling at site. 18:40 Patient moved to [address] 18:45 Patient visited by Denny Richter RN. 6 19:04 Patient visited by Marcial Torres. mas 19:13 Primary Nurse role handed off by Amy Lyn,PATRICK kr3 19:15 Patient visited by Carolina Johns LPN. slm 19:30 Patient visited by Marcial Torres. mas 19:45 Patient visited by Marcial Torres. mas 20:00 Patient visited by Marcial Torres. mas 20:18 Patient visited by Marcila Torres. mas 20:28 Attending Physician role handed off by Rachna Berrios MD mm11 20:28 Denny Sosa DO is Attending Physician. mm11 20:28 Fely Bhat is Hospitalizing Provider. mm11 20:30 Patient visited by Marcial Torres. mas 20:45 Patient visited by Marcial Torres. mas 20:55 No procedures done that require assistance. slm 21:03 Patient visited by Carolina Johns LPN. slm 21:10 Patient visited by Carolina Johns LPN. [facility] 21:13 [facility] Legal paperwork was scanned into [employer] and attached to record. cs 21:19 Patient visited by Carolina Johns LPN. [facility] Administered Medications: 14:03 Drug: Promethazine 12.5 mg [promethazine 25 mg/mL injection solution (0.5 mL)] Route: ja5 IVP; Site: right antecubital; Attachments: 21:13 E Legal paperwork cs Order Results: Lab Order: Acetaminophen Level; SPEC'M 07/12/16 12:36 Test: ACETAMINOPHEN LEVEL; Value: < 2.0; Range: 10.0-30.0; Abnormal: Below low normal; Units: UG/ML; Status: F Lab Order: Basic Metabolic Profile; [facility]'M 07/12/16 12:36 Test: GLUCOSE, FASTING; Value: 74; Range: 70-105; Units: MG/DL; Status: F Test: BLOOD UREA NITROGEN; Value: 10; Range: 7-18; Units: MG/DL; Status: F Test: CREATININE FOR GFR; Value: 0.99; Range: 0.55-1.02; Units: MG/DL; Status: F Test: GLOMERULAR FILTRATION RATE; Value: > 60.0; Range: >60; Status: F Test: SODIUM LEVEL; Value: 139; Range: 136-145; Units: MEQ/L; Status: F Test: POTASSIUM SERUM; Value: 3.3; Range: 3.5-5.1; Abnormal: Below low normal; Units: MEQ/L; Status: F Test: CHLORIDE LEVEL; Value: 106; Range: 98-107; Units: MEQ/L; Status: F Test: CARBON DIOXIDE LEVEL; Value: 22; Range: 21-32; Units: MEQ/L; Status: F Test: ANION GAP; Value: 11; Range: 8-16; Units: MEQ/L; Status: F Test: CALCIUM LEVEL; Value: 8.9; Range: 8.5-10.1; Units: MG/DL; Status: F Test Note: ; Units are mL/min/1.73 m2 Chronic Kidney Disease Staging per NKF: Stage I & II GFR >=60 Normal to Mildly Decreased Stage III GFR 30-59 Moderately Decreased Stage IV GFR 15-29 Severely Decreased Stage V GFR <15 Very Little GFR Left ESRD GFR <15 on YARD COUPLER Lab Order: Complete Blood Count; [facility]'07/12/16 12:36 Test: WHITE BLOOD COUNT; Value: 3.9; Range: 4.0-10.0; Abnormal: Below low normal; Units: K/mm3; Status: F Test: RED BLOOD COUNT; Value: 4.82; Range: 4.00-5.40; Units: M/mm3; Status: F Test: HEMOGLOBIN; Value: 15.4; Range: 12.0-16.0; Units: g/dl; Status: F Test: HEMATOCRIT; Value: 44.9; Range: 36.0-47.0; Units: %; Status: F Test: MEAN CORPUSCULAR VOLUME; Value: 93.3; Range: 80.0-96.0; Units: fl; Status: F Test: MEAN CORPUSCULAR HEMOGLOBIN; Value: 32.1; Range: 27.0-33.0; Units: pg; Status: F Test: MEAN CORPUSCULAR HGB CONC; Value: 34.4; Range: 32.0-36.5; Units: g/dl; Status: F Test: RED CELL DISTRIBUTION WIDTH; Value: 11.8; Range: 11.5-14.5; Units: %; Status: F Test: PLATELET COUNT, AUTOMATED; Value: 129; Range: 150-450; Abnormal: Below low normal; Units: k/mm3; Status: F Lab Order: Drug Eval Toxicology ED Only; SPEC'M 07/12/16 12:35 Test: AMPHETAMINES LEVEL URINE; Value: NEGATIVE; Range: NEGATIVE; Status: F Test: BARBITURATES URINE; Value: NEGATIVE; Range: NEGATIVE; Status: F Test: BENZODIAZEPINES URINE; Value: NEGATIVE; Range: NEGATIVE; Status: F Test: CANNABINOIDS URINE; Value: NEGATIVE; Range: NEGATIVE; Status: F Test: COCAINE METABOLITE URINE; Value: NEGATIVE; Range: NEGATIVE; Status: F Test: METHADONE URINE; Value: NEGATIVE; Range: NEGATIVE; Status: F Test: OPIATES URINE; Value: NEGATIVE; Range: NEGATIVE; Status: F Test: TRICYCLIC ANTIDEPRESS URINE; Value: NEGATIVE; Range: NEGATIVE; Status: F Test Note: ; ALL PRESUMPTIVE POSITIVE FINDINGS ARE UNCONFIRMED NORMAL VALUES THRESHOLD IN NG/ML AMPHETAMINES 1000 METHAMPHETAMINES 1000 BARBITURATES 300 BENZODIAZEPINES 300 CANNABINOIDS (THC) 50 COCAINE METABOLITE 300 METHADONE 300 OPIATES 300 PHENCYCLIDINE 25 TRICYCLIC ANTIDEPRESSANTS 1000 RESULTS ARE FOR MEDICAL PURPOSES ONLY. ALL URINE SPECIMENS WILL BE SAVED FOR 3 DAYS. IF CONFIRMATION OF A PRESUMPTIVE POSTIVE SCREEN RESULT IS DESIRED, CALL CHEMISTRY ([phone]) AND REQUEST URINE TO BE SENT TO REFERENCE LAB. FOR A LIST OF CLOSELY RELATED COMPOUNDS PLEASE CALL THE LAB. Lab Order: Ethyl Alcohol (ethanol); SPEC'M 07/12/16 12:36 Test: ETHYL ALCOHOL (ETHANOL); Value: < 0.003; Range: 0.000-0.010; Units: %; Status: F Lab Order: Liver Profile; SPEC'M 07/12/16 12:36 Test: AST/SGOT; Value: 24; Range: 15-37; Units: U/L; Status: F Test: ALT/SGPT; Value: 25; Range: 12-78; Units: U/L; Status: F Test: ALKALINE PHOSPHATASE; Value: 63; Range: 45-117; Units: U/L; Status: F Test: BILIRUBIN,TOTAL; Value: 1.1; Range: 0.2-1.0; Abnormal: Above high normal; Units: MG/DL; Status: F Test: BILIRUBIN,DIRECT; Value: 0.2; Range: 0.0-0.2; Units: MG/DL; Status: F Test: TOTAL PROTEIN; Value: 8.4; Range: 6.4-8.2; Abnormal: Above high normal; Units: GM/DL; Status: F Test: ALBUMIN; Value: 4.3; Range: 3.2-5.2; Units: GM/DL; Status: F Test: ALBUMIN/GLOBULIN RATIO; Value: 1.05; Range: 1.00-1.93; Status: F Lab Order: Salicylate Level; [facility] 07/12/16 12:36 Test: SALICYLATE LEVEL; Value: < 1.7; Range: 5.0-30.0; Abnormal: Below low normal; Units: MG/DL; Status: F Lab Order: Thyroid Stimulating Hormone; 07/12/16 12:36 Test: THYROID STIMULATING HORMONE; Value: 1.230; Range: 0.358-3.740; Units: uIU/ML; Status: F Lab Order: Urine Test-In Lab; 07/12/16 12:35 Test: URINE PREG TEST; Value: NEGATIVE; Range: NEGATIVE; Status: F Lab Order: Fingerstick Blood Sugar; [facility]07/12/16 12:50 Test: BEDSIDE GLUCOSE; Value: 73; Range: 70-105; Units: MG/DL; Status: F Lab Order: CARDIAC INJURY PROFILE; [facility] 07/12/16 12:36 Test: CPK CREATINE PHOSPHOKINASE; Value: 103; Range: 26-192; Units: U/L; Status: F Test: CK-MB VALUE MASS; Value: 1.0; Range: 0.0-3.6; Units: NG/ML; Status: F Test: MB/CK RELATIVE INDEX; Value: 0.97; Range: < OR =4; Status: F Test Note: ; DIAGNOSIS CRITERIA MMB ng/ml Relative Index (RI) NON-AMI < or = 5 N/A [place] > 5 < or = 4 AMI > 5 > 4 Lab Order: Salicylate Level: 1500; SPEC'M 07/12/16 15:25 Test: SALICYLATE LEVEL; Value: < 1.7; Range: 5.0-30.0; Abnormal: Below low normal; Units: MG/DL; Status: F Lab Order: Acetaminophen Level: 1500; SPEC'M 07/12/16 15:25 Test: ACETAMINOPHEN LEVEL; Value: < 2.0; Range: 10.0-30.0; Abnormal: Below low normal; Units: UG/ML; Status: F Outcome: 20:29 Decision to Hospitalize by Provider. [facility] 20:55 No special radiology studies were completed. [facility] 20:55 Discharge Assessment: patient administered narcotics - no. [facility] 21:23 The following High Risk Discharge criteria are identified: None. Admitted to [facility] accompanied by tech, via wheelchair, with chart. Condition: stable. 21:27 Patient left the ED. [facility] Signatures: Aleida Joe, Die Repairer Stamping Unit lbd Liban Lui, RN RN Mauro Hernadez, PSA PSA cs Randi Trevino, Gregorio Reg lg Amy Lyn,RN RN kr3 Denny Sosa, DO mm11 Denny Richter, RN RN ml6 Marcial Torres Demeishia dem1 Kecia Aliza, SOIL ENGINEER SOIL ENGINEER tmm1 Carolina Johns LPN PODIATRIST ASSISTANT [facility] Pierre Thomas,RN RN mb9 Meghann De La Paz, SOIL ENGINEER SOIL ENGINEER rs6 Rachna Berrios MD MD fg Tracie HuttonRN RN farida5 Corrections: (The following items were deleted from the chart) 13:43 13:40 General: Patient is awake, lethargic and oriented x3 with complaints of pain to ja5 her head 5/10 and stomach 7/10. She is laying on stretcher with visitors at bedside. Respirations are even and unlabored, 99%o2 sat on RA, sinus rhythm on pharmaceutical process engineer. . ja5 14: 13:52 CARDIAC INJURY PROFILE+LAB sent. ja5 EDMS : 14:08 Poison Control notified at 13:30 recommendations reviewed with to draw for ja5 acetaminophen, salicylates, electrolytes, CK, . No specific observation time was provided. . ja5 MTDD
--- NOTE | 2016-07-12 21:31 | ECGEPIP ---
Stationary ECG Study [facility] - ED Test Date: 2016-07-12 Pat Name: BERTIN GRESHAM Department: Room: - Gender: F Manager Customer: alfredo : 1995 Requested By: DAMARIS Joshi Order Number: [id number] Reading MD: Vania Marley Measurements Intervals [place] Rate: 64 P: 73 VA: 161 QRS: 36 QRSD: 94 T: 35 QT: 411 QTc: 425 Interpretive Statements SINUS RHYTHM WITH SINUS ARRHYTHMIA LOW QRS VOLTAGE IN PRECORDIAL LEADS NONSPECIFIC T-WAVE ABNORMALITY NO PRIOR FOR COMPARISON Electronically Signed On 07-12-2016 21:31:36 EST by Vania Marley
--- NOTE | 2016-07-12 21:35 | ECGEPIP ---
Stationary ECG Study [facility] - ED Test Date: 2016-07-12 Pat Name: BERTIN GRESHAM Department: Room: - Gender: F Maritime Engineer: alfredo : 1995 Requested By: DAMARIS Joshi Order Number: [id number] Reading MD: Vania Marley Measurements Intervals Desdemona Rate: 73 P: 89 MA: 162 QRS: 40 QRSD: 92 T: 85 QT: 397 QTc: 439 Interpretive Statements SINUS RHYTHM WITH SINUS ARRHYTHMIA MODERATE T-WAVE ABNORMALITY, CONSIDER ISCHEMIA INCREASED RATE/ST CHANGE 12:30 Electronically Signed On 07-12-2016 21:35:31 EST by Vania Marley
[2016-07-12 21:39] VITALS: BP 103/57
[2016-07-13] MEDS ORDERED: ALBUTEROL 90 MCG/ACT 8GM HFA INHALER INH PRN (00:15)
[2016-07-13] MEDS ORDERED: METHOCARBAMOL 500 MG TAB PO PRN (00:15)
[2016-07-13] MEDS ORDERED: MAALOX 30 ML SUSP *UDC PO PRN (00:15)
[2016-07-13] MEDS ORDERED: MOM 30ML SUSPENSION UDC PO PRN (00:15)
[2016-07-13 06:13] VITALS: BP 103/54
[2016-07-13] MEDS: CitaloPRAM (CeleXA) 20 MG TAB PO SCH (09:34)
[2016-07-13] MEDS: ADVAIR HFA 115/21 INHALER INH SCH ×2 (09:35→22:40)
[2016-07-13 12:05] VITALS: BP 110/70
[2016-07-13 18:30] VITALS: BP 105/60
[2016-07-13] MEDS: traZODone 50 MG TAB PO SCH (22:40)
[2016-07-14 06:29] VITALS: BP 100/49
[2016-07-14] MEDS: CitaloPRAM (CeleXA) 20 MG TAB PO SCH (09:25)
[2016-07-14] MEDS: ADVAIR HFA 115/21 INHALER INH SCH ×2 (09:26→21:32)
[2016-07-14 13:46] LABS: ANION GAP 6 MEQ/L (8-16); BLOOD UREA NITROGEN 10 MG/DL (7-18); CALCIUM LEVEL 8.9 MG/DL (8.5-10.1); CARBON DIOXIDE LEVEL 28 MEQ/L (21-32); CHLORIDE LEVEL 108 MEQ/L (98-107); CREATININE FOR GFR 1.06 MG/DL (0.55-1.02); GLOMERULAR FILTRATION RATE > 60.0 (>60); GLUCOSE, FASTING 87 MG/DL (70-105); POTASSIUM SERUM 4.2 MEQ/L (3.5-5.1); SODIUM LEVEL 142 MEQ/L (136-145)
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
[2016-07-14 17:55] VITALS: BP 127/84
[2016-07-14 18:00] VITALS: BP 127/84
[2016-07-14] MEDS: traZODone 50 MG TAB PO SCH (21:32)
--- NOTE | 2016-07-14 22:27 | EDDOCDS ---
Physician Documentation [facility] Name: Lacey Mohan Age: 21 yrs Sex: Female : 1995 Arrival Date: 07/12/2016 Time: 12:22 Bed [facility] Private MD: Disposition: 07/12/16 20:29 Hospitalization ordered by Fely Bhat for Inpatient Admission. Preliminary diagnosis is Suicide attempt. - Bed requested for Admit. - Status is Inpatient Admission. slm - Condition is Stable. - Problem is an acute exacerbation. - Symptoms have improved. Historical: - Allergies: Excedrin Migraine (Anaphylaxis); Toradol (Anaphylaxis); - Home Meds: 1. Celexa 20 mg Oral tab 1 tab once daily (Last dose: 07/09/2016) 2. albuterol sulfate 90 mcg/actuation Inhl HFAA as needed 3. methocarbamol 500 mg Oral tab 2 tabs every 8 hours as needed (Last dose: Unknown) 4. trazodone 50 mg Oral tab 1 tab nightly - PMHx: Anxiety; Asthma; - PSHx: none; - Social history: Smoking status: Patient uses tobacco products, current every day smoker. No barriers to communication noted, The patient speaks fluent Emirati, Speaks appropriately for age. - Family history: Not pertinent. - : The pt / caregiver states he / she is not on anticoagulants. Home medication list is obtained from the patient, [facility] import data. - Exposure Risk Screening:: None identified. 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 - Irregular menses kr3 Vital Signs: 12:24 BP 128 / 83; Pulse 72; Resp 20; Temp 97.8(TE); Pulse Ox 94% ; Weight 49.9 kg / 110.01 ja5 lbs; Pain 0/10; 13:08 BP 120 / 82 (auto/); ja5 13:10 Pulse 66 MON; Pulse Ox 100% ; ja5 13:15 BP 119 / 74 (auto/); ja5 13:15 Pulse 61 MON; Pulse Ox 100% ; ja5 13:30 BP 120 / 71 (auto/); ja5 13:30 Pulse 65 MON; Pulse Ox 99% ; ja5 13:45 BP 120 / 68 (auto/); ja5 13:45 Pulse 68 MON; Pulse Ox 97% ; ja5 14:00 BP 113 / 69 (auto/); ja5 14:00 Pulse 61 MON; Pulse Ox 99% ; ja5 14:15 BP 114 / 70 (auto/); ja5 14:15 Pulse 68 MON; Pulse Ox 100% ; ja5 14:30 BP 113 / 68 (auto/); ja5 14:31 Pulse 64 MON; Pulse Ox 100% ; ja5 14:45 BP 110 / 66 (auto/); ja5 14:45 Pulse 61 MON; Pulse Ox 100% ; ja5 15:00 BP 106 / 67 (auto/); ja5 15:00 Pulse 62 MON; Pulse Ox 96% ; ja5 15:30 BP 104 / 69 (auto/); ja5 15:30 Pulse 63 MON; Pulse Ox 98% ; ja5 15:45 BP 97 / 55 (auto/); ja5 15:45 Pulse 60 MON; Pulse Ox 97% ; ja5 17:04 BP 109 / 62; Pulse 64; Resp 16; Temp 97(O); Pulse Ox 98% ; Pain 0/10; ja5 17:45 BP 117 / 61 (auto/); kr3 17:46 Pulse 92 MON; Pulse Ox 98% on R/A; kr3 18:00 BP 113 / 65 (auto/); kr3 18:01 Pulse 84 MON; Pulse Ox 98% on R/A; kr3 21:24 BP 106 / 57; Pulse 83; Resp 16; Temp 96.5; Pulse Ox 95% on R/A; Pain 0/10; slm MDM: 12:26 ECG WITH READING ER PHYS+CARDIAG ordered. EDMS 12:32 Consult PFS/PSA/Navigation Officer ordered. fg 12:32 Consult PFS/PSA/Navigation Officer: Patient's case requires discussion with on-call fg Psychiatrist ordered. 12:32 PSA/PFS to call Nursing Foster Care Worker, to enter patient data on [place] Safe Act if patient fg involuntarily admitted or transferred for SI or HI ordered. 12:32 Confirm accurate psychiatric medication list and times of last dosage ordered. fg 12:32 Detain Pt Until Medically/PFS Cleared ordered. fg 12:33 Acetaminophen Level Ordered. EDMS 12:33 Basic Metabolic Profile Ordered. EDMS 12:33 Complete Blood Count Ordered. EDMS 12:33 Drug Eval Toxicology ED Only Ordered. EDMS 12:33 Ethyl Alcohol (ethanol) Ordered. EDMS 12:34 Liver Profile Ordered. EDMS 12:34 Salicylate Level Ordered. EDMS 12:34 Thyroid Stimulating Hormone Ordered. EDMS 12:47 Urine Test-In Lab Ordered. EDMS 12:48 Accucheck ordered. fg 13:00 Fingerstick Blood Sugar Ordered. EDMS 13:21 Financial registration complete. lg 13:37 SC-EM Payment Agreement was scanned into [employer] and attached to record. lg 13:47 Promethazine 12.5 mg IVP once; dilute and administer 30-60 minutes ordered. fg 13:48 Oxygen at 2L/min via NC ordered. fg 14:03 CARDIAC INJURY PROFILE Ordered. EDMS 14:30 Salicylate Level: 1500 Ordered. EDMS 14:30 Acetaminophen Level: 1500 Ordered. EDMS 16:22 ECG WITH READING ER PHYS+CARDIAG ordered. EDMS 16:57 REGULAR+DIET ordered. EDMS 18:42 REGULAR DIET PLASTIC BOLAND+DIET ordered. EDMS 20:17 Consult PFS/PSA/Navigation Officer complete. cl 20:17 Consult PFS/PSA/Navigation Officer: Patient's case requires discussion with on-call cl Psychiatrist complete. 20:17 PSA/PFS to call Nursing Foster Care Worker, to [place] Safe [place] if patient cl involuntarily admitted or transferred for SI or HI complete. 20:41 Acetaminophen Level Reviewed. mm11 20:41 Basic Metabolic Profile Reviewed. mm11 20:41 Complete Blood Count Reviewed. mm11 20:41 Liver Profile Reviewed. mm11 20:41 Salicylate Level Reviewed. mm11 20:41 Salicylate Level: 1500 Reviewed. mm11 20:41 Acetaminophen Level: 1500 Reviewed. mm11 20:41 Drug Eval Toxicology ED Only Reviewed. mm11 20:41 Ethyl Alcohol (ethanol) Reviewed. mm11 20:41 Thyroid Stimulating Hormone Reviewed. mm11 20:41 Urine Test-In Lab Reviewed. mm11 20:41 Fingerstick Blood Sugar Reviewed. mm11 20:41 CARDIAC INJURY PROFILE Reviewed. mm11 21:11 Admit to IMHU: ordered. EDMS 21:13 MHE Legal paperwork was scanned into [employer] and attached to record. cs 21:14 Admit to IMHU: ordered. EDMS 07/13 10:29 T-Sheet-- Draft Copy was scanned into [employer] and attached to record. gb 15:25 ECG/EKG was scanned into [employer] and attached to record. gb 15:25 Rhythm Strip was scanned into [employer] and attached to record. gb Administered Medications: 07/12 14:03 Drug: Promethazine 12.5 mg [promethazine 25 mg/mL injection solution (0.5 mL)] Route: ja5 IVP; Site: right antecubital; Signatures: Dispatcher [employer] EDMS Nathaniel Lopez, PSA PSA cl Wilbert, Mauro, PSA PSA cs Idania Ivey, Reg Reg gb Randi Trevino, Reg Reg lg Amy Lyn RN RN kr3 Denny Sosa, DO mm11 Carolina Johns,LEAN COACH LEAN COACH Rachna Gutierrez MD MD fg Anderson, Jessica RN ja5 The chart was reviewed and I authenticate all verbal orders and agree with the evaluation and treatment provided.Corrections: (The following items were deleted from the chart) 14:03 13:49 CARDIAC INJURY PROFILE+LAB ordered. EDMS EDMS Attachments: 13:37 SC-EM Payment Agreement lg 07/13 10:29 T-Sheet-- Draft Copy gb 15:25 ECG/EKG gb Chart Complete MTDD
--- NOTE | 2016-07-14 22:27 | EDDOCDS ---
Physician Documentation [facility] Name: Lacey Mohan Age: 21 yrs Sex: Female : 1995 Arrival Date: 07/12/2016 Time: 12:22 Bed [facility] Private MD: Disposition: 07/12/16 20:29 Hospitalization ordered by Fely Bhat for Inpatient Admission. Preliminary diagnosis is Suicide attempt. - Bed requested for Admit. - Status is Inpatient Admission. slm - Condition is Stable. - Problem is an acute exacerbation. - Symptoms have improved. Historical: - Allergies: Excedrin Migraine (Anaphylaxis); Toradol (Anaphylaxis); - Home Meds: 1. Celexa 20 mg Oral tab 1 tab once daily (Last dose: 07/09/2016) 2. albuterol sulfate 90 mcg/actuation Inhl HFAA as needed 3. methocarbamol 500 mg Oral tab 2 tabs every 8 hours as needed (Last dose: Unknown) 4. trazodone 50 mg Oral tab 1 tab nightly - PMHx: Anxiety; Asthma; - PSHx: none; - Social history: Smoking status: Patient uses tobacco products, current every day smoker. No barriers to communication noted, The patient speaks fluent Lao, Speaks appropriately for age. - Family history: Not pertinent. - : The pt / caregiver states he / she is not on anticoagulants. Home medication list is obtained from the patient, [employer] import data. - Exposure Risk Screening:: None identified. 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 N/A - Irregular menses kr3 Vital Signs: 12:24 BP 128 / 83; Pulse 72; Resp 20; Temp 97.8(TE); Pulse Ox 94% ; Weight 49.9 kg / 110.01 ja5 lbs; Pain 0/10; 13:08 BP 120 / 82 (auto/); ja5 13:10 Pulse 66 MON; Pulse Ox 100% ; ja5 13:15 BP 119 / 74 (auto/); ja5 13:15 Pulse 61 MON; Pulse Ox 100% ; ja5 13:30 BP 120 / 71 (auto/); ja5 13:30 Pulse 65 MON; Pulse Ox 99% ; ja5 13:45 BP 120 / 68 (auto/); ja5 13:45 Pulse 68 MON; Pulse Ox 97% ; ja5 14:00 BP 113 / 69 (auto/); ja5 14:00 Pulse 61 MON; Pulse Ox 99% ; ja5 14:15 BP 114 / 70 (auto/); ja5 14:15 Pulse 68 MON; Pulse Ox 100% ; ja5 14:30 BP 113 / 68 (auto/); ja5 14:31 Pulse 64 MON; Pulse Ox 100% ; ja5 14:45 BP 110 / 66 (auto/); ja5 14:45 Pulse 61 MON; Pulse Ox 100% ; ja5 15:00 BP 106 / 67 (auto/); ja5 15:00 Pulse 62 MON; Pulse Ox 96% ; ja5 15:30 BP 104 / 69 (auto/); ja5 15:30 Pulse 63 MON; Pulse Ox 98% ; ja5 15:45 BP 97 / 55 (auto/); ja5 15:45 Pulse 60 MON; Pulse Ox 97% ; ja5 17:04 BP 109 / 62; Pulse 64; Resp 16; Temp 97(O); Pulse Ox 98% ; Pain 0/10; ja5 17:45 BP 117 / 61 (auto/); kr3 17:46 Pulse 92 MON; Pulse Ox 98% on R/A; kr3 18:00 BP 113 / 65 (auto/); kr3 18:01 Pulse 84 MON; Pulse Ox 98% on R/A; kr3 21:24 BP 106 / 57; Pulse 83; Resp 16; Temp 96.5; Pulse Ox 95% on R/A; Pain 0/10; slm MDM: 12:26 ECG WITH READING ER PHYS+CARDIAG ordered. EDMS 12:32 Consult PFS/PSA/Visual And Stock Associate ordered. fg 12:32 Consult PFS/PSA/Visual And Stock Associate: Patient's case requires discussion with on-call fg Psychiatrist ordered. 12:32 PSA/PFS to call Nursing Active Directory Administrator, to enter [place] data [place] Safe [place] if patient fg involuntarily admitted or transferred for SI or HI ordered. 12:32 Confirm accurate psychiatric medication list and times of last dosage ordered. fg 12:32 Detain Pt Until Medically/PFS Cleared ordered. fg 12:33 Acetaminophen Level Ordered. EDMS 12:33 Basic Metabolic Profile Ordered. EDMS 12:33 Complete Blood Count Ordered. EDMS 12:33 Drug Eval Toxicology ED Only Ordered. EDMS 12:33 Ethyl Alcohol (ethanol) Ordered. EDMS 12:34 Liver Profile Ordered. EDMS 12:34 Salicylate Level Ordered. EDMS 12:34 Thyroid Stimulating Hormone Ordered. EDMS 12:47 Urine Test-In Lab Ordered. EDMS 12:48 Accucheck ordered. fg 13:00 Fingerstick Blood Sugar Ordered. EDMS 13:21 Financial registration complete. lg 13:37 [place]-EM Payment Agreement was scanned into [employer] and attached to record. lg 13:47 Promethazine 12.5 mg IVP once; dilute and administer 30-60 minutes ordered. fg 13:48 Oxygen at 2L/min via NC ordered. fg 14:03 CARDIAC INJURY PROFILE Ordered. EDMS 14:30 Salicylate Level: 1500 Ordered. EDMS 14:30 Acetaminophen Level: 1500 Ordered. EDMS 16:22 ECG WITH READING ER PHYS+CARDIAG ordered. EDMS 16:57 REGULAR+DIET ordered. EDMS 18:42 REGULAR DIET PLASTIC BOLAND+DIET ordered. EDMS 20:17 Consult PFS/PSA/Visual And Stock Associate complete. cl 20:17 Consult PFS/PSA/Visual And Stock Associate: Patient's case requires discussion with on-call cl Psychiatrist complete. 20:17 PSA/PFS to call Nursing Active Directory Administrator, to [place] if patient cl involuntarily admitted or transferred for SI or HI complete. 20:41 Acetaminophen Level Reviewed. mm11 20:41 Basic Metabolic Profile Reviewed. mm11 20:41 Complete Blood Count Reviewed. mm11 20:41 Liver Profile Reviewed. mm11 20:41 Salicylate Level Reviewed. mm11 20:41 Salicylate Level: 1500 Reviewed. mm11 20:41 Acetaminophen Level: 1500 Reviewed. mm11 20:41 Drug Eval Toxicology ED Only Reviewed. mm11 20:41 Ethyl Alcohol (ethanol) Reviewed. mm11 20:41 Thyroid Stimulating Hormone Reviewed. mm11 20:41 Urine Test-In Lab Reviewed. mm11 20:41 Fingerstick Blood Sugar Reviewed. mm11 20:41 CARDIAC INJURY PROFILE Reviewed. mm11 21:11 Admit to IMHU: ordered. EDMS 21:13 MHE Legal paperwork was scanned into [employer] and attached to record. cs 21:14 Admit to IMHU: ordered. EDMS 07/13 10:29 T-Sheet-- Draft Copy was scanned into [employer] and attached to record. gb 15:25 ECG/EKG was scanned into [employer] and attached to record. gb 15:25 Rhythm Strip was scanned into [employer] and attached to record. gb Administered Medications: 07/12 14:03 Drug: Promethazine 12.5 mg [promethazine 25 mg/mL injection solution (0.5 mL)] Route: ja5 IVP; Site: right antecubital; Signatures: Dispatcher [employer] EDMS Nathaniel Lopez, PSA PSA cl Wilbert, Mauro, PSA PSA cs Idania Ivey, Reg Reg gb Randi Trevino, Reg Reg lg Amy Lyn RN RN kr3 Denny Sosa, DO mm11 Carolina Johns,HISTORIC PRESERVATIONIST HISTORIC PRESERVATIONIST Rachna Gutierrez MD MD fg Anderson, Jessica RN ja5 The chart was reviewed and I authenticate all verbal orders and agree with the evaluation and treatment provided.Corrections: (The following items were deleted from the chart) 14:03 13:49 CARDIAC INJURY PROFILE+LAB ordered. EDMS EDMS Attachments: 13:37 IN-EM Payment Agreement lg 07/13 10:29 T-Sheet-- Draft Copy gb 15:25 ECG/EKG gb Chart Complete MTDD
--- NOTE | 2016-07-14 22:28 | EDDOCDS ---
Nurse's Notes [facility] Name: Lacey Mohan Age: 21 yrs Sex: Female : 1995 Arrival Date: 07/12/2016 Time: 12:22 Bed [facility] Private MD: Diagnosis: Suicide attempt Presentation: 07/12 12:24 Presenting complaint: EMS states: Patient found in house by friend, last known well ja5 time 11:10 AM, found ambien and trazidone prescription bottles in room, unknown amount taken. Upon arrival to scene EMS found patient unconscious with shallow respirations at a rate of 20, stable vital signs. of patient stated that she had been expressing suicidal ideations, last text message contained suicidal content. Presenting complaint:. Adult Sepsis Screening: Patient has new or worsening altered mentation (1 point). Patient's respiratory rate is less than 22. Systolic blood pressure is greater than 100. Patient has a qSOFA score of 0- Negative Sepsis Screen. Suicide/Homicide risk assessment- The patient admits to and/or has been reported to be having suicidal ideations. Status: Transition of care: patient was not received from another setting of care. 12:24 Acuity: DAT Level 2 ja5 12:24 Method Of Arrival: Ambulance ja5 12:49 Presenting complaint: Patient states: took Ambien times 2 which she had gotten in October and handful of trazodone. patient reports took meds to . Triage Assessment: 12:32 Neurological: Level of Consciousness is obtunded, Oriented to none. Cardiovascular: ja5 Rhythm is sinus rhythm. Respiratory: Airway is patent Respiratory effort is even, unlabored. Derm: Skin is pink, warm & dry. 20:55 HIV screening NA for this visit Offered previously. 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 Celexa 20 mg Oral tab 1 tab once daily (Last dose: 07/09/2016) 2. albuterol sulfate 90 mcg/actuation Inhl HFAA as needed 3. methocarbamol 500 mg Oral tab 2 tabs every 8 hours as needed (Last dose: Unknown) 4. trazodone 50 mg Oral tab 1 tab nightly - PMHx: Anxiety; Asthma; - PSHx: none; - Social history: Smoking status: Patient uses tobacco products, current every day smoker. No barriers to communication noted, The patient speaks fluent Malawian, Speaks appropriately for age. - Family history: Not pertinent. - : The pt / caregiver states he / she is not on anticoagulants. Home medication list is obtained from the patient, [email or web address] import data. - Exposure Risk Screening:: None identified. Screenin:39 Screening information is obtained from the patient. Fall risk: No risks identified. ml6 Assistance ADL's: requires no assistance with activities of daily living. Abuse/DV Screen: The patient / caregiver reports he/she is: not in a situation that causes fear, pain or injury. Nutritional screening: No deficits noted. Advance Directives: Currently, there is no health care proxy. home support is adequate. Assessment: 12:33 General: Appears to be sleeping. Behavior is unconscious. Neurological: Level of [facility] Consciousness is obtunded, Oriented to none. Cardiovascular: Capillary refill < 3 seconds Heart tones S1 S2 present Rhythm is sinus rhythm No ectopy. Respiratory: Airway is patent Respiratory effort is even, unlabored, Respiratory pattern is regular, symmetrical, Breath sounds are clear bilaterally. Derm: Skin is intact, Skin is pink, warm & dry. 13:40 General: Patient is awake, lethargic and oriented x3 with complaints of pain to her [facility] head 5/10 and stomach 7/10, provider notified. She is laying on stretcher with visitors at bedside. Respirations are even and unlabored, 99%o2 sat on RA, sinus rhythm on radiographer cardiac catheterization. . 14:46 General: Patient awake, alert, laying in stretcher with spouse and talking with the [facility] visitors in her room. SR on the monitor, 95% O2 sat on 2L NC with no SOB or labored breathing noted. . 16:01 General: Patient is asleep again, drowsy upon arousal, has a hard time keeping her eyes [facility] open when I talk to her. She is 96% O2sat on 2L O2 NC, respirations are even and unlabored, SR on the monitor. Visitors at bedside, side rails up, bed in low position, call decker in reach.. 17:00 General: Patient awake, alert and oriented x3 laying in stretcher with visitors at [facility] bedside. She states that she is hungry, provider notified, food tray ordered. . 18:41 General: Appears in no apparent distress, comfortable, Behavior is appropriate for age, ml6 cooperative. General: patient received from . Pain: Denies pain. Neurological: No deficits noted. Cardiovascular: No deficits noted. Capillary refill < 3 seconds is brisk in bilateral fingers toes Heart tones S1 S2 present Edema is absent. Pulses are all present. Rhythm is regular. Respiratory: No deficits noted. Airway is patent Respiratory effort is even, unlabored, Respiratory pattern is regular, symmetrical, Breath sounds are clear bilaterally. 18:41 General: Patient awake, alert, oriented x3. Respirations even and unlabored, SR on ja5 monitor. No complaints of pain. Patient has eaten all of her food on tray. Visitors at bedside. Patient transfer to [facility] via wheelchair. Gait steady during transfer. . 19:14 General: Appears in no apparent distress, comfortable, Behavior is appropriate for age, slm cooperative. General: pt eating dinner Chain of command in room security observing . Respiratory: Airway is patent Respiratory effort is even, unlabored. Derm: Skin is pink, warm & dry. 20:20 General: Appears in no apparent distress, comfortable, Behavior is appropriate for age, slm cooperative, pleasant, quiet. General: pt resting on stretcher security observing . Respiratory: Airway is patent Respiratory effort is even, unlabored. 21:18 General: Appears in no apparent distress, comfortable, Behavior is cooperative, quiet. slm General: pt resting on stretcher friend in to visit security observing . Pain: Denies pain. Neurological: Level of Consciousness is awake, alert, obeys commands. Respiratory: Airway is patent Respiratory effort is even, unlabored. Derm: Skin is pink, warm & dry. 21:23 Reassessment: Patient appears in no apparent distress at this time. [facility] Mental Health Eval: 19:45 Mental health consult is initiated at 19:46. 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 [facility] Behavioral Health: The patient is not an established patient of [facility] Behavioral Health. Referral Information: Evaluation referral is generated by [facility]. The patient was referred for evaluation because Pt was found by her /friend of 8 months after sending a suicide note to her IPAD, per Genny Mohan. Pt reports taking an OD of her new medications of 1 week, before writing a suicide note to her on pt's IPAD that the had. Pt reports feeling depressed and +suicidal 2 or 3 times a week, 3 weeks ago was +SI with a plan to sit in her garage with the door down and the car running, she went to her counselor and she CFS, then was put on medications. Pt reports without her trazodone she would not be sleeping at this time, sometimes she remembers to take her other medications. Pt reports as a 17 YO she attempted to cut her self on her left arm, no past admissions, no therapy, from [place], no family history. states she has a history, Bipolar, depression, anxiety, and her family has issues, very rich hidden behind their rich home, not a good support system. Pt is suppose to be med boarded out, but the [place] is trying to chapter her out because of an alleged smoking of Cannabis in 2015, per pt. Pt reports she has back pain and is not able to perform her duties and wishes to be med boarded out.. Subjective: The patients chief complaint is Pt reports feeling extremely depressed, + SI with an attempt today at 11:00 ok OD unknown amt of her medications, No thoughts to kill others, +SI 2 or 3 times a week, sleeping a problem if she does not take her medications, goes days with out eating, soft spoken, poor eye contact, tearful, remorseful. Delusions are denied. Patient's mood is anxious, depressed, hopeless, Hallucinations are denied. Mental Health history: anxiety, Bipolar Disorder, depression, Mental Health Admissions: None. Current Outpatient Mental Health Services: Psychiatrist / Agency: [facility] therapist and doctor past 6 months per pt. Current living environment is The patient currently lives with his / her significant other, . 20:14 Patient presents to Emergency Department with the following symptoms within the past 2 cs weeks: agitation, anxiety, depressed mood, feelings of helplessness/hopelessness, non-compliance, poor impulse control, sleep disturbance - insomnia, suicidal ideation with attempt/gesture by pills. Substance abuse: Pt denies. Mental status exam: Patients appearance is thin, Patient's behavior is inhibited, Speech is mumbled. slow. Affect is restricted. Mood is anxious. depressed. fearful. Hallucinations are denied. Appetite is poor. Memory is fair. Energy level is tires easily. Content of thought is normal. Thought process is intact. Cognitive level is oriented to person, place, time and situation Patient's insight is absent. Judgement is poor. Rapport with interviewer is good. Suicidal Ideation present with a plan to kill self by pills. Homicidal ideation is not present. Disposition: Medically cleared for disposition by Rachna Berrios MD Psychiatric Consult is performed by phone with Dr Fely Bhat. [facility] Admission Criteria: The patient has had a suicide attempt in the recent past. Pt wrote a suicide note at 10:32 am today and attempted to OD unknown quantity at 11:00, was [facility], pt was unresponsive. The patient requires continuous observation and/or control to protect self, others or property. The patient's care requires a multi-modal treatment plan under close supervision and coordination due to the complexity and severity of the patient's symptoms. The patient requires administration and monitoring of psychoactive medications by skilled medical providers due to the side effects of the psychoactive medications or significant dosage adjustments. Legal Status: Patient's legal status will be Emergency admission: 39. [place] Safe Act: [place] Safe Act is applicable to this patient. The patient poses a risk to self or other and the Nursing Safe Deposit Attendant has been notified. He/She will enter the patient's data. DSM-V Differential Diagnosis: Unspecified Depressive Disorder (F32.9). Insurance Pre-Certification: Not Required. Narrative: took legals and information about visiting pt on Friday. Pt states preferred pharmacy is: [facility]. Vital Signs: 12:24 BP 128 / 83; Pulse 72; Resp 20; Temp 97.8(TE); Pulse Ox 94% ; Weight 49.9 kg; Pain 0/10;ja5 13:08 BP 120 / 82 (auto/); ja5 13:10 Pulse 66 MON; Pulse Ox 100% ; ja5 13:15 BP 119 / 74 (auto/); ja5 13:15 Pulse 61 MON; Pulse Ox 100% ; ja5 13:30 BP 120 / 71 (auto/); ja5 13:30 Pulse 65 MON; Pulse Ox 99% ; ja5 13:45 BP 120 / 68 (auto/); ja5 13:45 Pulse 68 MON; Pulse Ox 97% ; ja5 14:00 BP 113 / 69 (auto/); ja5 14:00 Pulse 61 MON; Pulse Ox 99% ; ja5 14:15 BP 114 / 70 (auto/); ja5 14:15 Pulse 68 MON; Pulse Ox 100% ; ja5 14:30 BP 113 / 68 (auto/); ja5 14:31 Pulse 64 MON; Pulse Ox 100% ; ja5 14:45 BP 110 / 66 (auto/); ja5 14:45 Pulse 61 MON; Pulse Ox 100% ; ja5 15:00 BP 106 / 67 (auto/); ja5 15:00 Pulse 62 MON; Pulse Ox 96% ; ja5 15:30 BP 104 / 69 (auto/); ja5 15:30 Pulse 63 MON; Pulse Ox 98% ; ja5 15:45 BP 97 / 55 (auto/); ja5 15:45 Pulse 60 MON; Pulse Ox 97% ; ja5 17:04 BP 109 / 62; Pulse 64; Resp 16; Temp 97(O); Pulse Ox 98% ; Pain 0/10; ja5 17:45 BP 117 / 61 (auto/); kr3 17:46 Pulse 92 MON; Pulse Ox 98% on R/A; kr3 18:00 BP 113 / 65 (auto/); kr3 18:01 Pulse 84 MON; Pulse Ox 98% on R/A; kr3 21:24 BP 106 / 57; Pulse 83; Resp 16; Temp 96.5; Pulse Ox 95% on R/A; Pain 0/10; slm Vitals: 12:24 Log In Time: July 12, 2016 at 12:20. [facility] ED Course: 12:23 Patient visited by Aleida Joe, Supervisor Costuming. lbd 12:23 Amy Lyn,RN is Primary Nurse. lbd 12:23 Tracie Hutton,RN is Primary Nurse. lbd 12:23 Patient moved to Waiting lbd 12:23 Patient moved to 2 lbd 12:30 Triage Initiated [facility] 12:30 EKG done. (by ED staff). Reviewed by Rachna Berrios MD. dem1 12:31 Rachna Berrios MD is Attending Physician. fg 12:31 Patient visited by Rachna Berrios MD. fg 12:33 Patient visited by Jd Mcleod. dem1 12:33 satellite project site monitor on. Pulse ox on. NIBP on. dem1 12:38 The patient / caregiver is instructed regarding the plan of care and ED course. ml6 12:38 Inserted peripheral IV: 18gauge IV in left antecubital area and blood collected. ml6 Patient tolerated the procedure well. Labs drawn. (by ED staff). Sent per order to lab. 12:39 Acetaminophen Level Sent. kr3 12:39 Basic Metabolic Profile Sent. kr3 12:39 Complete Blood Count Sent. kr3 12:39 Drug Eval Toxicology ED Only Sent. kr3 12:39 Ethyl Alcohol (ethanol) Sent. kr3 12:39 Liver Profile Sent. kr3 12:39 Salicylate Level Sent. kr3 12:39 Thyroid Stimulating Hormone Sent. kr3 13:32 Urine Test-In Lab Sent. mb9 13:37 [facility] Payment Agreement was scanned into [employer] and attached to record. lg 13:44 Patient visited by Tracie Hutton RN. ja5 14:07 Patient visited by Tracie Hutton RN. ja5 14:08 Poison Control notified at 13:30 recommendations reviewed with to draw for ja5 acetaminophen, salicylates, ethanol, electrolytes, CK, . No specific observation time was provided. . 14:50 Patient visited by Tracie Hutton RN. ja5 15:21 Patient visited by Tracie Hutton RN. ja5 15:28 Acetaminophen Level: 1500 Sent. kr3 15:28 Salicylate Level: 1500 Sent. kr3 16:10 Patient visited by Tracie Hutton RN. ja5 16:18 Poison Control notified at 16:19 recommendations reviewed with Recommended a repeat EKG ja5 and a total of 6 hours of observation before a transition of care. 16:36 EKG done. (by ED staff). Reviewed by Rachna Berrios MD. dem1 16:37 Patient visited by Meghann De La Paz PCA. rs6 16:41 Patient visited by Jd Mcleod. dem1 17:02 Patient visited by Tracie Hutton RN. ja5 17:27 Diet tray given. kr3 18:16 Patient visited by Amy Lyn RN. kr3 18:30 Patient moved to [address] 18:36 Psych Safety Check: Location: Psych Room. Visual Assessment: Cooperative. tmm1 18:36 Accompanied by Significant Other, chain of command is present, Patient has correct tmm1 armband on for positive identification. Placed in psych safe attire. Bed in low position. Side rails up X 1. Security observing. Property removed, inventory done, secured in belongings bag- placed in locked locker. 18:38 Discontinued lock intact, bleeding controlled, pressure dressing applied, No ja5 redness/swelling at site. 18:40 Patient moved to [address] 18:45 Patient visited by Denny Richter RN. 6 19:04 Patient visited by Marcial Torres. mas 19:13 Primary Nurse role handed off by Amy Lyn,PATRICK kr3 19:15 Patient visited by Carolina Johns LPN. slm 19:30 Patient visited by Marcial Torres. mas 19:45 Patient visited by Marcial Torres. mas 20:00 Patient visited by Marcial Torres. mas 20:18 Patient visited by Marcial Torres. mas 20:28 Attending Physician role handed off by Rachna Berrios MD mm11 20:28 Denny Sosa DO is Attending Physician. mm11 20:28 Fely Bhat is Hospitalizing Provider. mm11 20:30 Patient visited by Marcial Torres. mas 20:45 Patient visited by Marcial Torres. mas 20:55 No procedures done that require assistance. slm 21:03 Patient visited by Carolina Johns LPN. slm 21:10 Patient visited by Carolina Johns LPN. [facility] 21:13 [facility] Legal paperwork was scanned into [employer] and attached to record. cs 21:19 Patient visited by Carolina Johns LPN. [facility] 07/13 10:29 T-Sheet-- Draft Copy was scanned into [employer] and attached to record. gb 15:25 ECG/EKG was scanned into [employer] and attached to record. gb 15:25 Rhythm Strip was scanned into [employer] and attached to record. gb Administered Medications: 07/12 14:03 Drug: Promethazine 12.5 mg [promethazine 25 mg/mL injection solution (0.5 mL)] Route: ja5 IVP; Site: right antecubital; Attachments: 21:13 [facility] Legal paperwork 15:25 Rhythm Strip gb Order Results: Lab Order: Acetaminophen Level; SPEC'07/12/16 12:36 Test: ACETAMINOPHEN LEVEL; Value: < 2.0; Range: 10.0-30.0; Abnormal: Below low normal; Units: UG/ML; Status: F Lab Order: Basic Metabolic Profile; SPEC'07/12/16 12:36 Test: GLUCOSE, FASTING; Value: 74; Range: 70-105; Units: MG/DL; Status: F Test: BLOOD UREA NITROGEN; Value: 10; Range: 7-18; Units: MG/DL; Status: F Test: CREATININE FOR GFR; Value: 0.99; Range: 0.55-1.02; Units: MG/DL; Status: F Test: GLOMERULAR FILTRATION RATE; Value: > 60.0; Range: >60; Status: F Test: SODIUM LEVEL; Value: 139; Range: 136-145; Units: MEQ/L; Status: F Test: POTASSIUM SERUM; Value: 3.3; Range: 3.5-5.1; Abnormal: Below low normal; Units: MEQ/L; Status: F Test: CHLORIDE LEVEL; Value: 106; Range: 98-107; Units: MEQ/L; Status: F Test: CARBON DIOXIDE LEVEL; Value: 22; Range: 21-32; Units: MEQ/L; Status: F Test: ANION GAP; Value: 11; Range: 8-16; Units: MEQ/L; Status: F Test: CALCIUM LEVEL; Value: 8.9; Range: 8.5-10.1; Units: MG/DL; Status: F Test Note: ; Units are mL/min/1.73 m2 Chronic Kidney Disease Staging per NKF: Stage I & II GFR >=60 Normal to Mildly Decreased Stage III GFR 30-59 Moderately Decreased Stage IV GFR 15-29 Severely Decreased Stage V GFR <15 Very Little GFR Left ESRD GFR <15 on TAR HEEL Lab Order: Complete Blood Count; SPEC'07/12/16 12:36 Test: WHITE BLOOD COUNT; Value: 3.9; Range: 4.0-10.0; Abnormal: Below low normal; Units: K/mm3; Status: F Test: RED BLOOD COUNT; Value: 4.82; Range: 4.00-5.40; Units: M/mm3; Status: F Test: HEMOGLOBIN; Value: 15.4; Range: 12.0-16.0; Units: g/dl; Status: F Test: HEMATOCRIT; Value: 44.9; Range: 36.0-47.0; Units: %; Status: F Test: MEAN CORPUSCULAR VOLUME; Value: 93.3; Range: 80.0-96.0; Units: fl; Status: F Test: MEAN CORPUSCULAR HEMOGLOBIN; Value: 32.1; Range: 27.0-33.0; Units: pg; Status: F Test: MEAN CORPUSCULAR HGB CONC; Value: 34.4; Range: 32.0-36.5; Units: g/dl; Status: F Test: RED CELL DISTRIBUTION WIDTH; Value: 11.8; Range: 11.5-14.5; Units: %; Status: F Test: PLATELET COUNT, AUTOMATED; Value: 129; Range: 150-450; Abnormal: Below low normal; Units: k/mm3; Status: F Lab Order: Drug Eval Toxicology ED Only; SPEC'M 07/12/16 12:35 Test: AMPHETAMINES LEVEL URINE; Value: NEGATIVE; Range: NEGATIVE; Status: F Test: BARBITURATES URINE; Value: NEGATIVE; Range: NEGATIVE; Status: F Test: BENZODIAZEPINES URINE; Value: NEGATIVE; Range: NEGATIVE; Status: F Test: CANNABINOIDS URINE; Value: NEGATIVE; Range: NEGATIVE; Status: F Test: COCAINE METABOLITE URINE; Value: NEGATIVE; Range: NEGATIVE; Status: F Test: METHADONE URINE; Value: NEGATIVE; Range: NEGATIVE; Status: F Test: OPIATES URINE; Value: NEGATIVE; Range: NEGATIVE; Status: F Test: TRICYCLIC ANTIDEPRESS URINE; Value: NEGATIVE; Range: NEGATIVE; Status: F Test Note: ; ALL PRESUMPTIVE POSITIVE FINDINGS ARE UNCONFIRMED NORMAL VALUES THRESHOLD IN NG/ML AMPHETAMINES 1000 METHAMPHETAMINES 1000 BARBITURATES 300 BENZODIAZEPINES 300 CANNABINOIDS (THC) 50 COCAINE METABOLITE 300 METHADONE 300 OPIATES 300 PHENCYCLIDINE 25 TRICYCLIC ANTIDEPRESSANTS 1000 RESULTS ARE FOR MEDICAL PURPOSES ONLY. ALL URINE SPECIMENS WILL BE SAVED FOR 3 DAYS. IF CONFIRMATION OF A PRESUMPTIVE POSTIVE SCREEN RESULT IS DESIRED, CALL CHEMISTRY ([phone]) AND REQUEST URINE TO BE SENT TO REFERENCE LAB. FOR A LIST OF CLOSELY RELATED COMPOUNDS PLEASE CALL THE LAB. Lab Order: Ethyl Alcohol (ethanol); SPEC'07/12/16 12:36 Test: ETHYL ALCOHOL (ETHANOL); Value: < 0.003; Range: 0.000-0.010; Units: %; Status: F Lab Order: Liver Profile; [facility]' 07/12/16 12:36 Test: AST/SGOT; Value: 24; Range: 15-37; Units: U/L; Status: F Test: ALT/SGPT; Value: 25; Range: 12-78; Units: U/L; Status: F Test: ALKALINE PHOSPHATASE; Value: 63; Range: 45-117; Units: U/L; Status: F Test: BILIRUBIN,TOTAL; Value: 1.1; Range: 0.2-1.0; Abnormal: Above high normal; Units: MG/DL; Status: F Test: BILIRUBIN,DIRECT; Value: 0.2; Range: 0.0-0.2; Units: MG/DL; Status: F Test: TOTAL PROTEIN; Value: 8.4; Range: 6.4-8.2; Abnormal: Above high normal; Units: GM/DL; Status: F Test: ALBUMIN; Value: 4.3; Range: 3.2-5.2; Units: GM/DL; Status: F Test: ALBUMIN/GLOBULIN RATIO; Value: 1.05; Range: 1.00-1.93; Status: F Lab Order: Salicylate Level; 07/12/16 12:36 Test: SALICYLATE LEVEL; Value: < 1.7; Range: 5.0-30.0; Abnormal: Below low normal; Units: MG/DL; Status: F Lab Order: Thyroid Stimulating Hormone; 07/12/16 12:36 Test: THYROID STIMULATING HORMONE; Value: 1.230; Range: 0.358-3.740; Units: uIU/ML; Status: F Lab Order: Urine Test-In Lab; 07/12/16 12:35 Test: URINE PREG TEST; Value: NEGATIVE; Range: NEGATIVE; Status: F Lab Order: Fingerstick Blood Sugar; 07/12/16 12:50 Test: BEDSIDE GLUCOSE; Value: 73; Range: 70-105; Units: MG/DL; Status: F Lab Order: CARDIAC INJURY PROFILE; SPEC'M 07/12/16 12:36 Test: CPK CREATINE PHOSPHOKINASE; Value: 103; Range: 26-192; Units: U/L; Status: F Test: CK-MB VALUE MASS; Value: 1.0; Range: 0.0-3.6; Units: NG/ML; Status: F Test: MB/CK RELATIVE INDEX; Value: 0.97; Range: < OR =4; Status: F Test Note: ; DIAGNOSIS CRITERIA MMB ng/ml Relative Index (RI) NON-AMI < or = 5 N/A [place] > 5 < or = 4 AMI > 5 > 4 Lab Order: Salicylate Level: 1500; SPEC'M 07/12/16 15:25 Test: SALICYLATE LEVEL; Value: < 1.7; Range: 5.0-30.0; Abnormal: Below low normal; Units: MG/DL; Status: F Lab Order: Acetaminophen Level: 1500; SPEC' 07/12/16 15:25 Test: ACETAMINOPHEN LEVEL; Value: < 2.0; Range: 10.0-30.0; Abnormal: Below low normal; Units: UG/ML; Status: F Outcome: 07/12 20:29 Decision to Hospitalize by Provider. [facility] 20:55 No special radiology studies were completed. [facility] 20:55 Discharge Assessment: patient administered narcotics - no. slm 21:23 The following High Risk Discharge criteria are identified: None. Admitted to [facility] accompanied by tech, via wheelchair, with chart. Condition: stable. 21:27 Patient left the ED. [facility] Signatures: Aleida Joe, Supervisor Costuming Unit lbd Liban Lui, RN RN Mauro Hernadez, JOCELYNE PSA cs Idania Ivey, Reg Reg gb Randi Trevino, Reg Reg lg Amy Lyn,RN RN Denny Antunez, DO mm11 Denny Richter, RN RN ml6 Marcial Torres Demeishia dem1 Aliza Mcdonnell, MOLD SHIFTER MOLD SHIFTER tmm1 Carolina Johns,DATA PROCESSING SUPERVISOR DATA PROCESSING SUPERVISOR [facility] Pierre Thomas,RN RN mb9 Meghann De La Paz, MOLD SHIFTER MOLD SHIFTER rs6 BerriosRachna MD MD fg Anderson, JessicaRN RN ja5 Corrections: (The following items were deleted from the chart) 13:43 13:40 General: Patient is awake, lethargic and oriented x3 with complaints of pain to ja5 her head 5/10 and stomach 7/10. She is laying on stretcher with visitors at bedside. Respirations are even and unlabored, 99%o2 sat on RA, sinus rhythm on radiographer cardiac catheterization. . farida5 14:03 13:52 CARDIAC INJURY PROFILE+LAB sent. krys EDMS 14:13 14:08 Poison Control notified at 13:30 recommendations reviewed with to draw for ja5 acetaminophen, salicylates, electrolytes, CK, . No specific observation time was provided. . krys Chart Complete MTDD
[2016-07-15 06:00] VITALS: BP 107/56
--- NOTE | 2016-07-15 07:58 | IPN ---
DATE: 07/14/2016 CHIEF COMPLAINT: Says feels okay. SUBJECTIVE: Seen for followup. Indicates feels okay, that she was visited by her , says that went well. Feels a bit more optimistic. Sleep was fair. MENTAL STATUS EXAMINATION: Neat, cooperative, no agitation, coherent. Affect is restricted but reactive. Denies any thoughts of harming himself or anyone else. Currently no evidence of any psychosis. Cognition is grossly intact. Judgment and insight remain somewhat questionable. ASSESSMENT: Major depressive disorder, recurrent, severe without psychotic features. Rule out bipolar disorder. PLAN: Continue current care, look at obtaining collateral information, would suggest engaging her in activities in the unit. Continue with Celexa 20 mg daily, and consider using a mood stabilizer. VITAL SIGNS: Blood pressure 127/84, pulse 92, temperature 98.3. She will be seen by the assigned psychiatrist, and the treatment team tomorrow.
[2016-07-15] MEDS: ADVAIR HFA 115/21 INHALER INH SCH ×2 (09:11→22:00)
[2016-07-15] MEDS: CitaloPRAM (CeleXA) 20 MG TAB PO SCH (09:11)
[2016-07-15] MEDS ORDERED: hydrOXYzine 25 MG TAB PO PRN (13:15)
[2016-07-15 18:00] VITALS: BP 114/56
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
[2016-07-15] MEDS: traZODone 50 MG TAB PO SCH (22:00)
[2016-07-15] MEDS: GABAPENTIN 100 MG CAP PO SCH (22:00)
[2016-07-16 07:04] VITALS: BP 93/51
--- NOTE | 2016-07-16 08:44 | HPE ---
DATE OF ADMISSION: 07/12/2016 Please refer to the psychiatric history and evaluation for further details on this admission. This examination and history is intended for medical issues which may need treatment, followup or consultation on this 21-year-old female. PRIMARY CARE PROVIDER: [facility]. 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 ETOH - none. Smokes - about 3 cigarettes per day. Recreational drug use - none. PAST MEDICAL HISTORY: 1. Asthma, stable. 2. Anxiety. 3. Chronic low back pain. PAST SURGICAL HISTORY: Negative. HOME MEDICATIONS: - Flovent 1 inhalation twice a day - albuterol HFA 2 puffs by mouth every 4 hours as needed for shortness of breath or wheeze - methocarbamol 500 mg one by mouth every 8 hours as needed for back pain FAMILY HISTORY: Noncontributory. She has had the flu vaccine. LABORATORY STUDIES: WBC 3.9, hemoglobin 15.4, hematocrit 44.9 and platelets 129. Sodium 133, potassium 3.3, BUN 10, creatinine 0.99. REVIEW OF SYSTEMS: Ten systems review was done. Other than chronic back pain and asthma, which are both clinically stable, review of systems was unremarkable. PHYSICAL EXAMINATION: 21-year-old cooperative -Lao female in no acute distress. Height 61 inches. Weight 50.8 kg. Body mass index (BMI) 21.2. Blood pressure 105/60. Pulse 79. Respirations 16. Temperature 97.7. The patient is alert and oriented times three. Pupils equal and react to light. Extraocular movements intact. Cornea and sclera clear. Conjunctiva normal. No facial asymmetry. Pharynx, tongue and gums pink and moist. Tongue is midline. Neck is supple, without lymphadenopathy. No thyromegaly. No goiter. Carotids 2+, without bruit. Chest clear to auscultation, without wheeze or retraction. Heart is regular. Abdomen benign. Bowel sounds positive. Genitourinary ()/Rectal: Not done. Extremities show equal strength, full range of motion. No cyanosis, clubbing or edema. Peripheral pulses equal and palpable bilaterally. Skin is warm and dry. IMPRESSION AND PLAN: 1. Psychiatric. Plan per psychiatry. 2. History of asthma. Continue Flovent, albuterol as needed. 3. Chronic low back pain. Methocarbamol 500 one by mouth every 8 hours as needed for back pain. 4. No acute medical issues.
[2016-07-16] MEDS ORDERED: CitaloPRAM (CeleXA) 10 MG TABLET PO SCH (09:00)
[2016-07-16] MEDS: FLUoxetine 10 MG CAP PO SCH (09:37)
[2016-07-16] MEDS: ADVAIR HFA 115/21 INHALER INH SCH ×2 (09:37→22:05)
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
[2016-07-16 18:00] VITALS: BP 108/56
[2016-07-16] MEDS: traZODone 50 MG TAB PO SCH (22:06)
[2016-07-16] MEDS: GABAPENTIN 100 MG CAP PO SCH (22:06)
[2016-07-17 06:38] VITALS: BP 110/59
[2016-07-17] MEDS: FLUoxetine 10 MG CAP PO SCH (09:39)
[2016-07-17] MEDS: ADVAIR HFA 115/21 INHALER INH SCH ×2 (09:40→20:38)
[2016-07-17] MEDS: CitaloPRAM (CeleXA) 10 MG TABLET PO SCH (10:13)
[2016-07-17 18:00] VITALS: BP 103/53
[2016-07-17] MEDS ORDERED: TRAZO50TA PO (18:30)
[2016-07-17] MEDS ORDERED: FLUO10CA9 PO (18:30)
[2016-07-17] MEDS ORDERED: GABA-279 PO (18:30)
[2016-07-17] MEDS ORDERED: HYDR25T PO (18:30)
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
[2016-07-17] MEDS: traZODone 50 MG TAB PO SCH ×2 (20:38→22:10)
[2016-07-17] MEDS: GABAPENTIN 100 MG CAP PO SCH (20:38)
[2016-07-18 07:00] VITALS: BP 105/66
[2016-07-18] MEDS: ADVAIR HFA 115/21 INHALER INH SCH (09:16)
[2016-07-18] MEDS: FLUoxetine 10 MG CAP PO SCH (09:16)
[2016-07-18] MEDS: CitaloPRAM (CeleXA) 10 MG TABLET PO SCH (10:08)
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
== END 2016-07-18 12:00 | disposition home or self-care (01) | DRG 885 ==
LOC: M ED 12:22 → M PSY 21:33
PROVIDERS: ADMIT Psychiatry & Neurology Psychiatry; ATTEND Psychiatry & Neurology Psychiatry
DX: F33.1 Major depressive disorder, recurrent, moderate (principal); T43.212A Poisoning by selective serotonin and norepinephrine reuptake inhibitors, intentional self-harm, initial encounter; Y92.019 Unspecified place in single-family (private) house as the place of occurrence of the external cause; F17.210 Nicotine dependence, cigarettes, uncomplicated; M54.5 Low back pain; J45.909 Unspecified asthma, uncomplicated; Z60.8 Other problems related to social environment; Z62.810 Personal history of physical and sexual abuse in childhood; Z56.89 Other problems related to employment; Z79.51 Long term (current) use of inhaled steroids; Z79.899 Other long term (current) drug therapy

== ENCOUNTER 2016-08-09 10:11 | Emergency (ER) | payer OTHER ==
[~2016-08-09] VITALS: Ht 154.9 cm; Wt 49.9 kg
[~2016-08-09 10:11] MED LIST changes: +ADVA115A INH; +CELE20TA PO; +FLUO10CA9 PO; +GABA-279 PO; +HYDR25T PO; +PROA1AER INH; +TRAZ50TA4 PO; +TRAZO50TA PO
[2016-08-09] MEDS ORDERED: NS 1,000 ML IV ONE (11:30)
[2016-08-09 12:02] LABS: BASO % 0.5 % (0.0-1.0); EOS # 0.2 K/mm3 (0.0-0.50); EOS % 5.2 % (0.0-3.0); LARGE UNSTAINED CELL # 0.1 K/mm3 (0.0-0.4); LYMPH # 1.5 K/mm3 (1.5-6.5); LYMPH % 45.4 % (24.0-44.0); MEAN CORPUSCULAR HEMOGLOBIN 31.6 pg (27.0-33.0); MEAN CORPUSCULAR VOLUME 92.8 fl (80.0-96.0); MONO # 0.1 K/mm3 (0.0-0.8); MONO % 4.1 % (0.0-5.0); NEUTROPHILS # 1.3 K/mm3 (1.8-7.7); NEUTROPHILS % 41.7 % (36.0-66.0); PLATELET COUNT, AUTOMATED 170 k/mm3 (150-450); WHITE BLOOD COUNT 3.2 K/mm3 (4.0-10.0)
[2016-08-09 12:07] LABS: INR 0.95
[2016-08-09 13:49] VITALS: BP 108/58
--- NOTE | 2016-08-09 14:43 | REP ---
PELVIC ULTRASOUND: Real-time sonographic evaluation of the pelvis is performed utilizing transabdominal and endovaginal technique. The bladder measures 8.4 x 4.6 x 7.3 cm. The uterus measures 6.8 x 4.2 x 4.2 cm. Endometrial thickness is 14 mm with no endometrial fluid collection. The uterus is retroverted. The ovaries are normal in size and echotexture, right ovary measuring 4.9 x 1.9 x 2.3 cm and the left ovary 3.5 x 1.8 x 2.7 cm. There is no adnexal mass. There is trace free fluid, which is likely physiologic in nature. There is no torsion of either ovary with blood flow seen in each ovary with duplex Doppler evaluation, RI of the right ovary 0.58 and left ovary 0.56. IMPRESSION: Essentially negative pelvic ultrasound. Signed by Ahmet Castro MD 08/09/2016 05:03 P
== END 2016-08-09 14:41 | disposition home or self-care (01) ==
LOC: M ED 10:54
DX: N93.8 Other specified abnormal uterine and vaginal bleeding (principal); R42 Dizziness and giddiness; R53.83 Other fatigue; Z79.899 Other long term (current) drug therapy; Z88.6 Allergy status to analgesic agent; Z88.8 Allergy status to other drugs, medicaments and biological substances

== ENCOUNTER 2016-09-20 14:27 | Emergency (ER) | payer OTHER ==
[~2016-09-20] VITALS: Ht 154.9 cm; Wt 59.0 kg
[2016-09-20] MEDS ORDERED: MORPHINE 2 MG/ML 1ML SYRINGE IV ONE (15:00)
[2016-09-20] MEDS ORDERED: ONDANSETRON 4MG/2ML VIAL (J2405) IV ONE (15:15)
[2016-09-20 15:49] LABS: BASO % 0.2 % (0.0-1.0); EOS # 0.3 K/mm3 (0.0-0.50); EOS % 5.5 % (0.0-3.0); LARGE UNSTAINED CELL # 0.1 K/mm3 (0.0-0.4); LARGE UNSTAINED CELL % 1.8 % (0.0-4.0); LYMPH # 2.3 K/mm3 (1.5-6.5); LYMPH % 42.2 % (24.0-44.0); MEAN CORPUSCULAR HEMOGLOBIN 31.6 pg (27.0-33.0); MEAN CORPUSCULAR HGB CONC 33.6 g/dl (32.0-36.5); MONO # 0.2 K/mm3 (0.0-0.8); MONO % 2.9 % (0.0-5.0); NEUTROPHILS # 2.5 K/mm3 (1.8-7.7); NEUTROPHILS % 47.4 % (36.0-66.0); PLATELET COUNT, AUTOMATED 225 k/mm3 (150-450); RED CELL DISTRIBUTION WIDTH 12.7 % (11.5-14.5); WHITE BLOOD COUNT 5.3 K/mm3 (4.0-10.0)
--- NOTE | 2016-09-20 16:05 | REP ---
Pelvic sonography: History: Vaginal bleeding. Findings: Transabdominal and transvaginal scanning demonstrate a normal size homogeneous uterus with dimensions of 6.6 x 3.3 x 4.0 cm. 1.6 cm endometrial echo is measured trans vaginally. Uterus is somewhat retroverted. There is a small quantity of fluid in the cul-de-sac. Normal ovaries are seen bilaterally. Right ovary dimensions are 6.6 x 3.3 x 4.0 cm. Left ovary dimensions are 3.1 x 1.9 x 2.6 cm. Doppler flow is normal in both ovaries. Resistive indices are 0.53 and 0.55 on the right and left respectively. Impression: Small quantity of fluid the cul-de-sac consistent with physiologic fluid. Slightly retroverted uterus. No significant morphologic abnormality. Signed by Talon Dowd MD 09/20/2016 05:02 P
[2016-09-20] MEDS ORDERED: ZOFR4TAB3 PO (16:59)
[2016-09-20 17:07] VITALS: BP 117/57
== END 2016-09-20 17:08 | disposition home or self-care (01) ==
LOC: M ED 15:07
DX: N93.8 Other specified abnormal uterine and vaginal bleeding (principal); J45.909 Unspecified asthma, uncomplicated; K58.9 Irritable bowel syndrome, unspecified; E28.2 Polycystic ovarian syndrome; M54.9 Dorsalgia, unspecified; G89.29 Other chronic pain; Z79.3 Long term (current) use of hormonal contraceptives; Z88.8 Allergy status to other drugs, medicaments and biological substances; Z88.5 Allergy status to narcotic agent; Z79.899 Other long term (current) drug therapy; Z79.51 Long term (current) use of inhaled steroids
CPT/HCPCS: 76830; 76856; 81001; 85025; 86850; 86900; 86901; 87210; 87491; 87591; 93976; 96374; 96375; 99284; J2405